=== PATIENT | female | born 1945 | race Caucasian/White ===

== ENCOUNTER → 2020-10-16 11:13 | Outpatient (BNVA) | payer MEDICARE, OTHER, SELFPAY | PROVIDERS: Visit Provider Registered Nurse Neonatal Intensive Care | DX: Z20.822 Contact with and (suspected) exposure to COVID-19 (principal) | CPT/HCPCS: 87635 ==

== ENCOUNTER → 2020-11-10 13:23 | Outpatient (BNVA) | payer MEDICARE, OTHER, SELFPAY | PROVIDERS: Visit Provider Family Medicine | DX: G25.81 Restless legs syndrome (principal); R60.9 Edema, unspecified; K21.9 Gastro-esophageal reflux disease without esophagitis; Z79.899 Other long term (current) drug therapy | CPT/HCPCS: 80053; 80061; 84443; 85025 ==

== ENCOUNTER → 2020-12-23 16:34 | Outpatient (BNVA) | payer MEDICARE, OTHER, SELFPAY | PROVIDERS: Visit Provider Family Medicine | DX: N20.0 Calculus of kidney (principal) | CPT/HCPCS: 81000 ==

== ENCOUNTER 2020-12-27 07:54 | Outpatient (CLI) | payer MEDICARE, OTHER, SELFPAY ==
--- NOTE | 2020-12-27 08:23 | XR_ITS ---
WS: [id number] ABDOMEN KUB CLINICAL INFORMATION: Renal/ureteral calculi. COMPARISON: None. FINDINGS: Several pelvic phleboliths. Possible calculus or phlebolith in the left pelvis along the co urse of the left ureter measuring 4 mm. This could be further evaluated with CT abdomen and pelvis re nal stone protocol. No calculi visualized over the renal fossa although partially obscured by bowel g as. Osteopenia. Mild lumbar curve convex left. Pedicle screw fixation L4-5 with interbody fusion graft. M oderate to advanced degenerative arthritis both hips. Mild degenerative arthritis sacroiliac joints. XR/XR KUB [id number] Impression: Possible calculus or phlebolith in the left pelvis along the course of the left ureter measuring 4 mm. This could be further evaluated with CT abdomen and pel vis renal stone protocol.
== END 2020-12-27 07:55 | disposition home or self-care (01) ==
PROVIDERS: PCP Family Medicine; Visit Provider Family Medicine
DX: N20.0 Calculus of kidney (principal)
CPT/HCPCS: 74018

== ENCOUNTER 2020-12-31 09:17 | Outpatient (CLI) | payer MEDICARE, OTHER, SELFPAY ==
--- NOTE | 2020-12-31 09:27 | XR_ITS ---
WS: [id number] KUB, AP view, 12/31/2020 Clinical Data: CALCULUS OF KIDNEY Comparison: KUB, 12/27/2020. Findings: No abnormal intraabdominal masses are seen. There is no dilatated small bowel or evidence of obstruct ion. The small calcification in the left side of the true pelvis remains the same. The patient had a bilat eral posterior lumbar fusion at L4-L5 with pedicle screws and connecting rods. There is an artificial disc at L4-L5. There is osteoarthritis of both hips and the upper lumbar vertebral bodies. There is fecal material throughout the colon. XR/XR KUB [id number] Impression: No change in possible distal left ureteral calculus.
== END 2020-12-31 09:18 | disposition home or self-care (01) ==
LOC: RAD 09:22
PROVIDERS: PCP Family Medicine; Visit Provider Urology
DX: N20.0 Calculus of kidney (principal)
CPT/HCPCS: 74018; 80048; 81003

== ENCOUNTER 2021-01-03 08:31 | Outpatient (CLI) | payer MEDICARE, OTHER, SELFPAY ==
--- NOTE | 2021-01-03 09:00 | CT_ITS ---
WS: [id number] CT ABDOMEN PELVIS TECHNIQUE: Noncontrast CT of the abdomen and pelvis with coronal and sagittal reformatted images. CLINICAL INFORMATION: CALCULUS OF LEFT KIDNEY COMPARISON: KUB December 2020 DLP: 1335.[address] scans at [facility] use at least one of these dose optimization techniques: automated e xposure control; mA and/or kV adjustment per patient size (includes targeted exams where dose is matc hed to clinical indication); or iterative reconstruction. FINDINGS: Prior postoperative changes hysterectomy. Prior right nephrectomy. Sludge within the gallbladder. Small esophageal hiatal hernia. Mild hepatomegaly. Noncontrast spleen appears normal. Lung bases are well aerated. Subsegmental atelectasis in the lung bases. Fatty atrophy of the pancreas. Adrenal glands are normal. Small left renal cyst. No hydronephrosis in the left kidney. Normal caliber abdominal aorta. Aortic calcification. No obstructing renal or urete ral calculi. Bladder is decompressed. Diffuse bladder wall thickening. Pelvic phleboliths. 2.5 cm lef t renal cyst. Sigmoid diverticuli. No evidence of acute diverticulitis. No evidence of high-grade small or large joy wel obstruction. No abdominal or pelvic lymphadenopathy. No inguinal lymphadenopathy. Slight anterolisthesis L4 on L5. Pedicle screw fixation L4-5. CT/CT kidney stone [id number] IMPRESSION: 1. Prior hysterectomy and right nephrectomy. 2. No hydronephrosis in the left kidney. No obstructing left renal or ureteral calculi. No hydronephrosis. 3. Bladder is decompressed with diffuse bladder wall thickening.Correlation fo r cystitis or chronic cystitis. 4. Small esophageal hiatal hernia. 5. Sludge within the gallbladder. This can be followed up with ultrasound. 6. Sigmoid diverticulosis.
== END 2021-01-03 08:32 | disposition home or self-care (01) ==
LOC: RAD 08:33
PROVIDERS: PCP Family Medicine; Visit Provider Urology
DX: N20.0 Calculus of kidney (principal); Z90.710 Acquired absence of both cervix and uterus; Z90.5 Acquired absence of kidney; K44.9 Diaphragmatic hernia without obstruction or gangrene; K57.30 Diverticulosis of large intestine without perforation or abscess without bleeding
CPT/HCPCS: 74176; 81003

== ENCOUNTER → 2021-01-12 10:14 | Outpatient (BNVA) | payer MEDICARE, OTHER, SELFPAY | PROVIDERS: PCP Family Medicine; Visit Provider Nurse Practitioner Family | DX: R10.9 Unspecified abdominal pain (principal); S61.411A Laceration without foreign body of right hand, initial encounter; X58.XXXA Exposure to other specified factors, initial encounter | CPT/HCPCS: 80053 ==

== ENCOUNTER → 2021-01-27 13:17 | Outpatient (BNVA) | payer MEDICARE, OTHER, SELFPAY | PROVIDERS: PCP Family Medicine; Referring Provider Nurse Practitioner Family; Visit Provider Anesthesiology Pain Medicine | DX: M47.816 Spondylosis without myelopathy or radiculopathy, lumbar region (principal); M48.062 Spinal stenosis, lumbar region with neurogenic claudication; M43.26 Fusion of spine, lumbar region; M51.16 Intervertebral disc disorders with radiculopathy, lumbar region | CPT/HCPCS: 99204 ==

== ENCOUNTER 2021-02-14 07:29 | Outpatient (CLI) | payer MEDICARE, OTHER, SELFPAY ==
--- NOTE | 2021-02-14 08:00 | MR_ITS ---
WS: [id number] MRI LUMBAR SPINE NONCONTRAST TECHNIQUE: Sagittal T1, T2 and STIR imaging. Axial T1 and T2 imaging. CLINICAL INFORMATION: M48.062 - Spinal stenosis, lumbar region with neurogenic ... COMPARISON: None. FINDINGS: Mild lumbar curve. No acute compression. No high-grade central canal stenosis. Pedicle screw fixation L4-5 with interbody fusion graft. L1-L2: Mild disc osteophyte ridging. Slight effacement of ventral thecal sac. Mild facet arthropathy. Mild right and no significant left foraminal narrowing. L2-L3: Mild disc bulging with moderate facet arthropathy and ligamentum flavum hypertrophy. Moderate central canal stenosis. Mild right foraminal narrowing. L3-L4: Slight anterolisthesis L3 on L4. Mild disc bulging with slight narrowing of the subarticular r ecess bilaterally. Moderate facet arthropathy. Mild right foraminal narrowing. L4-L5: Postoperative changes pedicle screw fixation with interbody fusion graft. Spinal canal and for amen are patent. L5-S1: Mild disc bulging slight effacement of ventral thecal sac. Advanced arthropathy. Spinal canal and foramen are patent. Visualized pelvic bony structures: Normal. Paravertebral soft tissues: Normal. MR/MR lumbar spine wo con* [id number] IMPRESSION: 1. Mild lumbar curve. No acute compression. 2. Pedicle screw fixation L4-5 with interbody fusion grafts. Laminectomy defec ts. 3. Mild central canal stenosis L1-2 and moderate central canal stenosis L2-3 d ue to disc bulging with facet arthropathy and ligamentum flavum flavum hypertro phy. 4. Mild narrowing of the L3-4 subarticular recess bilaterally. Moderate facet arthropathy at this level. 5. Advanced facet arthropathy L5-S1. 6. Mild right L1-2, right L2-3 and right L3-4 foraminal narrowing.
== END 2021-02-14 07:30 | disposition home or self-care (01) ==
LOC: RADSHAW 07:34
PROVIDERS: PCP Family Medicine; Visit Provider Anesthesiology Pain Medicine
DX: M48.062 Spinal stenosis, lumbar region with neurogenic claudication (principal); M47.817 Spondylosis without myelopathy or radiculopathy, lumbosacral region; M48.061 Spinal stenosis, lumbar region without neurogenic claudication
CPT/HCPCS: 72148

== ENCOUNTER → 2021-02-23 08:53 | Outpatient (BNVA) | payer MEDICARE, OTHER, SELFPAY | PROVIDERS: PCP Family Medicine; Visit Provider Anesthesiology Pain Medicine | DX: M43.26 Fusion of spine, lumbar region (principal); M47.816 Spondylosis without myelopathy or radiculopathy, lumbar region; M51.16 Intervertebral disc disorders with radiculopathy, lumbar region; M25.511 Pain in right shoulder; M25.512 Pain in left shoulder | CPT/HCPCS: 99214 ==

== ENCOUNTER → 2021-03-01 13:44 | Outpatient (BNVA) | payer MEDICARE, OTHER, SELFPAY | PROVIDERS: PCP Family Medicine; Visit Provider Specialist | DX: R20.0 Anesthesia of skin (principal); R20.2 Paresthesia of skin | CPT/HCPCS: 99203 ==

== ENCOUNTER → 2021-03-15 14:01 | Outpatient (BNVA) | payer MEDICARE, OTHER, SELFPAY | PROVIDERS: PCP Family Medicine; Visit Provider Anesthesiology Pain Medicine | DX: M47.816 Spondylosis without myelopathy or radiculopathy, lumbar region (principal) | CPT/HCPCS: 64493; 64494; 64495; J3490 ==

== ENCOUNTER → 2021-03-29 10:11 | Outpatient (BNVA) | payer MEDICARE, OTHER, SELFPAY | PROVIDERS: PCP Family Medicine; Visit Provider Anesthesiology Pain Medicine | DX: M43.26 Fusion of spine, lumbar region (principal); M47.816 Spondylosis without myelopathy or radiculopathy, lumbar region; M51.16 Intervertebral disc disorders with radiculopathy, lumbar region | CPT/HCPCS: 99214 ==

== ENCOUNTER → 2021-04-05 09:15 | Outpatient (BNVA) | payer MEDICARE, OTHER, SELFPAY | PROVIDERS: PCP Family Medicine; Referring Provider Specialist; Visit Provider Specialist | DX: G56.03 Carpal tunnel syndrome, bilateral upper limbs (principal) | CPT/HCPCS: 95910 ==

== ENCOUNTER → 2021-04-11 12:31 | Outpatient (BNVA) | payer MEDICARE, OTHER, SELFPAY | PROVIDERS: PCP Family Medicine; Visit Provider Anesthesiology Pain Medicine | DX: M47.816 Spondylosis without myelopathy or radiculopathy, lumbar region (principal) | CPT/HCPCS: 64635; 64636; J1030 ==

== ENCOUNTER → 2021-04-26 12:27 | Outpatient (BNVA) | payer MEDICARE, OTHER, SELFPAY | PROVIDERS: PCP Family Medicine; Visit Provider Anesthesiology Pain Medicine | DX: M47.816 Spondylosis without myelopathy or radiculopathy, lumbar region (principal) | CPT/HCPCS: 64635; 64636; J1030 ==

== ENCOUNTER → 2021-05-11 09:56 | Outpatient (BNVA) | payer MEDICARE, OTHER, SELFPAY | PROVIDERS: PCP Family Medicine; Visit Provider Anesthesiology Pain Medicine | DX: M47.816 Spondylosis without myelopathy or radiculopathy, lumbar region (principal); M51.16 Intervertebral disc disorders with radiculopathy, lumbar region; M43.26 Fusion of spine, lumbar region | CPT/HCPCS: 99212 ==

== ENCOUNTER → 2021-05-16 09:14 | Outpatient (BNVA) | payer MEDICARE, OTHER, SELFPAY | PROVIDERS: PCP Family Medicine; Referring Provider Specialist; Visit Provider Specialist | DX: G56.03 Carpal tunnel syndrome, bilateral upper limbs (principal) | CPT/HCPCS: 73110 ==

== ENCOUNTER 2021-06-03 06:39 | Day surgery (SDC) | payer MEDICARE, OTHER, SELFPAY ==
[2021-06-02 12:44] VITALS: BMI 29.9
[2021-06-03] VITALS (8 sets, daily range): BP systolic 169–215; BP diastolic 80–104; PULSE 81–96; RESP 12–16; TEMP 36.3–36.6; O2SAT 95–99
--- NOTE | 2021-06-03 07:00 | W.PM.OPSUD ---
Surgery/Procedure H&P Update DATE OF PROCEDURE: June 03, 2021 DATE H&P PERFORMED: 05/16/21 H&P UPDATE INFORMATION: I have reviewed H&P completed within last 30 days, I have examined patient prior to procedure and Changes to prior documentation as noted here CHANGES TO PREVIOUS DOCUMENTATION: Trigger thumb continues to increase in symptoms. Patient wishes to have this addressed surgically today as well. This will be added to the procedure today. Risks and complications discussed with patient and she understands. PREOP DIAGNOSIS: Left carpal tunnel syndrome, Left trigger thumb PLANNED PROCEDURE: Operation Date: 06/03/21 08:15 Proposed Procedures p Carpal Tunnel Release 89294/g56.00(Left) - Camelia Tobin MD Related Problem List Diagnoses (1) Carpal tunnel syndrome, left: (2) Trigger thumb of left hand:
[2021-06-03 07:36] LABS: Basophils # 0.1 10^3/uL (0.0-0.1); Basophils % 0.9 %; Eosinophils # 0.3 10^3/uL (0.0-0.8); Eosinophils % 3.7 %; Hematocrit 43.4 % (37.0-47.0); Hemoglobin 13.7 g/dL (11.5-15.3); Lymphocytes # 1.2 10^3/uL (0.8-4.8); Lymphocytes % 16.3 %; Mean Corpuscular HGB Conc 31.6 g/dL (30.0-36.0); Mean Corpuscular Hemoglobin 30.2 pg (28.0-34.0); Mean Corpuscular Volume 95.8 fl (81-99); Mean Platelet Volume 10.4 fL (7.4-10.4); Monocytes # 0.8 10^3/uL (0.2-0.9); Monocytes % 10.2 %; Neutrophils # 5.02 10^3/uL (1.8-7.7); Neutrophils % 68.1 %; Nucleated Red Blood Cells % 0 %; Platelet Count 267 10^3/cmm (130-400); Red Blood Count 4.53 10^6/uL (4.1-5.3); Red Cell Distribution Width 12.5 % (12.1-15.1); White Blood Count 7.4 10^3/uL (4.0-10.0)
[2021-06-03] MEDS: sodium chloride 0.9% 1,000 ML 30 ML IV (07:37)
[2021-06-03 07:52] LABS: Alanine Aminotransferase 22 U/L (0-33); Albumin Level 4.4 g/dL (3.5-5.2); Alkaline Phosphatase 98 IU/L (35-105); Anion Gap 15.1 (5-19); Aspartate Amino Transferase 24 U/L (0-32); Blood Urea Nitrogen 10 mg/dL (8-23); Calcium 9.5 mg/dL (8.5-10.5); Carbon Dioxide 25 mmol/L (22-29); Chloride 104 mmol/L (98-107); Globulin 3.4 g/dL (1.3-4.6); Glucose 103 mg/dL (65-115); Osmolality Calculated 289 mOsm/kg (285-295); Potassium 4.1 mmol/L (3.5-5.1); Sodium 140 mmol/L (136-145); Total Bilirubin 0.6 mg/dL (0.15-1.2); Total Protein 7.8 g/dL (6.6-8.7)
--- NOTE | 2021-06-03 07:55 | ANES.PREANE2 ---
Pre-Anesthetic Assessment Height/Weight: Height 1.65 m Weight 81.647 kg Temp Pulse Resp BP Pulse Ox 97.7 F 81 16 215/100 97 06/03/21 07:15 06/03/21 07:15 06/03/21 07:15 06/03/21 07:15 06/03/21 07:15 Preop Diagnosis: Left carpal tunnel syndrome, Left trigger thumb Operation Date: 06/03/21 08:15 Proposed Procedures p Carpal Tunnel Release 35003/g56.00(Left) - Camelia Tobin MD Familial anesthetic complications: None Was Beta Roger taken within 24 hours: N/A Was Clonidine taken within 24 hours: N/A Last intake: Intake Last Liquid Date 06/02/21 Last Liquid Time 19:30 Last Solid Date 06/02/21 Last Solid Time 17:00 Social No alcohol and No tobacco Exam alert, oriented x 3, clear to auscultation bilaterally and regular rate & rhythm Airway Submandibular: within normal limits Cervical ROM: within normal limits Mallampati: Class II Dentition: full GI Gastroesophageal Reflux Disease Musc/skel Lower Back Pain and Osteoarthritis/DJD Anesthetic Plan ASA status: 2 Anesthesia: MAC and Regional (specify below) (Esha perez) Medications/Allergies Home Medications Medication Instructions Recorded Confirmed Last Taken Type omeprazole 20 mg capsule,delayed 20 mg PO DAILY #30 cap 12/23/20 06/03/21 06/02/21 Rx release baclofen 10 mg tablet 10 mg PO BID PRN #60 tab 02/23/21 06/02/21 Unknown Rx diazepam 5 mg tablet 5 mg PO BID #60 tab 05/17/21 06/03/21 06/02/21 Rx aspirin 81 mg tablet,delayed 81 mg PO DAILY 06/02/21 06/03/21 06/01/21 History release pramipexole 1 mg tablet 1 mg PO BEDTIME 06/03/21 06/03/21 06/02/21 History Allergies Allergy/AdvReac Type Severity Reaction Status Date / Time adhesive tape Allergy irritating Verified 06/03/21 07:14 skin amoxicillin [From Augmentin] Allergy GI upset Verified 06/03/21 07:14 clavulanic acid Allergy GI upset Verified 06/03/21 07:14 [From Augmentin] codeine Allergy Nausea Verified 06/03/21 07:14 Sulfa (Sulfonamide Allergy Rash Verified 06/03/21 07:14 Antibiotics) Current Medications Generic Name Dose Route Start Last Admin Trade Name Toddq PRN Reason Stop Dose Admin Sodium Chloride 1,000 mls @ 30 mls/hr 06/03/21 07:00 06/03/21 07:37 Sodium Chloride 0.9% IV 06/04/21 06:59 30 mls/hr .Q24H NADYA Administration PFSH Anesthesia Medical History Kidney stone Surgical History History of kidney removal Hx of hysterectomy Previous back surgery Family History Father , AT AGE 66 Heart attack Mother , AT AGE 93 Stroke Social History Smoking and tobacco status: never smoked Alcohol intake: never Marital status: Current occupational status: retired History of recent travel: Yes Details: [place] LAST WEEKEND Out of state: Yes Data Anesthesia : 06/03/21 07:21 06/03/21 07:21 Short CBC 06/03/21 Range/Units 07:21 WBC 7.4 (4.0-10.0) 10^3/uL Hgb 13.7 (11.5-15.3) g/dL Hct 43.4 (37.0-47.0) % MCV 95.8 (81-99) fl Plt Count 267 (130-400) 10^3/cmm Neut % (Auto) 68.1 % Neut # (Auto) 5.02 (1.8-7.7) 10^3/uL BMP 06/03/21 07:21 Sodium 140 Potassium 4.1 Chloride 104 Carbon Dioxide 25 BUN 10 Creatinine 0.8 Glucose 103 Calcium 9.5 Liver Function 06/03/21 Range/Units 07:21 Total Bilirubin 0.6 (0.15-1.2) mg/dL AST 24 (0-32) U/L ALT 22 (0-33) U/L Alkaline Phosphatase 98 (35-105) IU/L Albumin 4.4 (3.5-5.2) g/dL Cardiac Studies: No Data to Display
--- NOTE | 2021-06-03 09:57 | PM.OP ---
Operative Report Date of procedure: June 03, 2021 Pre-op diagnosis: Left carpal tunnel syndrome, Left trigger thumb Post-op diagnosis: Left carpal tunnel syndrome, Left trigger thumb Procedure done: Left carpal tunnel release and left trigger thumb release Pathology: none sent Surgeon: Camelia Tobin Director Of Individual Giving: None Anesthesia: MAC (With Arcade block, ASA 2) Estimated blood loss (mL): 1 Tourniquet time (min): 54 (At 250 mmHg) IV fluids (mL): 800 Urine output (mL): 0 (No Mark) Complications: None Findings: Significant thickening of the A1 ingris of the thumb. Compression across the carpal canal. Condition: stable Disposition: PACU (Then return to same-day surgery for discharge to home) Brief History: This is a 75 year old female patient who presented with symptoms consistent with bilateral carpal tunnel. Patient noted significant pain from the carpal tunnel syndrome. Additionally, she complained of triggering of her left thumb. At the time of initial evaluation, she was not sure that it was symptomatic enough, but when she presented today, she noted that it had increased significantly in symptoms and was worsening. She wished to proceed with trigger thumb release as well. Patient states that it can wake her up at night.? Patient states that pain on left side can start in hand and jump to shoulder. Procedure: The patient was brought to the operating theater. The patient had a Arcade block with MAC, ASA 2. The tourniquet was elevated to 250 mmHg for a total tourniquet time of 54 minutes. The patient was also given Ancef 2 g preoperatively. The arm was then prepped and draped with DuraPrep in usual fashion with the arm draped free. A surgical pause was performed. At the time, the surgical pause, we confirmed the site and side of surgery. We also confirmed the patient's identity, appropriate and timely administration of preoperative antibiotics and preoperative surgical markings. An incision was then made along the thenar crease. The incision crossed the wrist joint in a curvilinear fashion. Dissection continued through skin and soft tissues using a scalpel. The palmaris longus was identified along with the transverse carpal ligament. Each of these was released carefully to avoid injury to the median nerve. We were able to dissect gently into the carpal canal which was noted to be quite tight with significant compression across the median nerve. The canal was subsequently palpated to assure there was no bony encroachment upon the canal. The canal was then palpated distally and proximally to assure that my small finger was passed easily without impingement. Finding this to be so, attention was directed to closure. The wound was irrigated with ropivacaine plain. It was then closed with 3-0 nylon in an interrupted mattress fashion. An incision was made along the metacarpal phalangeal crease of the thumb. Dissection continued through the skin to the subcutaneous tissues using a scalpel. Blunt dissection was then utilized to spread soft tissues and allow access to the A1 ingris. It was then incised longitudinally and sharply using a knife. This was accomplished without difficulty and atraumatically. Once the A1 ingris was released, tendon wasbrought up out of the wound and evaluated. There were no gross masses on the tendon. Tendon was returned to normal position. We then irrigated the wound and subsequently closed it with 3-0 nylon with an interrupted mattress type suture. Following closure of the wound, both incisions were injected with ropivacaine into the subcutaneous tissues as a local anesthetic. Sterile dressing was then placed consisting of Dermabond, OpSite, fluffed fluffs, sterile soft roll, and an Louis wrap. The tourniquet was released after 54 minutes. The patient was returned to recovery in satisfactory condition. She will be discharged home to follow-up with me in the office. There were no complications and no specimens. Related Problem List Diagnoses (1) Carpal tunnel syndrome, left: (2) Trigger thumb of left hand:
--- NOTE | 2021-06-03 13:08 | ANE.PACU2 ---
Inpatient post-anesthesia follow up: Airway intact: Yes Vital signs: Temperature 98 F Pulse Rate 90 Respiratory Rate 16 Blood Pressure 170/90 Pulse Oximetry 97 Oxygen Delivery Me thod Room Air Oxygen Flow Rate Fraction of Inspir ed Oxygen Hydration adequate: Yes Nausea and vomiting: No Pain level: 2 Mental status: Baseline
== END 2021-06-03 10:45 | disposition home or self-care (01) ==
PROVIDERS: PCP Family Medicine; Visit Provider Specialist
PROC: (CPT 64721; principal; 2021-06-03 08:15)
PROC: (CPT 26055; 2021-06-03 08:15)
DX: G56.02 Carpal tunnel syndrome, left upper limb (principal); M65.312 Trigger thumb, left thumb; K21.9 Gastro-esophageal reflux disease without esophagitis; M19.90 Unspecified osteoarthritis, unspecified site
CPT/HCPCS: 26055; 64721; 36415; 80053; 85025; J0690; J2704; J3010; J3490; J7030

== ENCOUNTER → 2021-08-10 09:05 | Outpatient (BNVA) | payer MEDICARE, OTHER, SELFPAY | PROVIDERS: PCP Family Medicine; Visit Provider Surgery | DX: Z86.010 Personal history of colon polyps (principal) | CPT/HCPCS: 99203 ==

== ENCOUNTER 2021-08-11 07:35 | Day surgery (SDC) | payer MEDICARE, OTHER, SELFPAY ==
[2021-08-10 11:28] VITALS: BMI 30.6
[2021-08-11 08:00] VITALS: BP 157/76; PULSE 95; RESP 18; TEMP 36.5; O2SAT 97
[2021-08-11] MEDS: sodium chloride 0.9% 1,000 ML 30 ML IV (08:04)
--- NOTE | 2021-08-11 09:08 | P.ANESASSM_ITS ---
Pre-Anesthetic Assessment Height/Weight: Height 1.65 m Weight 83.461 kg Temp Pulse Resp BP Pulse Ox 97.7 F 95 18 157/76 97 08/11/21 08:00 08/11/21 08:00 08/11/21 08:00 08/11/21 08:00 08/11/21 08:00 Preop Diagnosis: History of colon polyps Operation Date: 08/11/21 09:15 Proposed Procedures p Colonoscopy 77388,Z86.010(Not Applicable) - Antelmo Byrne MD Familial anesthetic complications: None Was Beta Roger taken within 24 hours: N/A Was Clonidine taken within 24 hours: N/A Last intake: Intake Last Liquid Date 08/10/21 Last Liquid Time 20:00 Last Solid Date 08/10/21 Last Solid Time 06:30 Social No alcohol and No tobacco Exam alert, oriented x 3, clear to auscultation bilaterally and regular rate & rhythm Airway Submandibular: within normal limits Cervical ROM: within normal limits Mallampati: Class I Dentition: full History/ROS No significant complaints Pulmonary None reported CV/HEM Hypertension Hx of kidney removal Hepatic None reported GI Gastroesophageal Reflux Disease Diverticulosis Metabolic None reported Musc/skel Lower Back Pain and Osteoarthritis/DJD Anesthetic Plan ASA status: 2 Anesthesia: Anesthesia Evaluation and General Other: I discussed with the patient risks, goals, and benefits of MAC and general anesthesia. We discussed spectrum of MAC anesthesia including conversion to general as well as possibility of recall of intraoperative stimuli including discomfort/pain. Patient agrees to proceed with MAC. Risk of > 500 ml blood loss (7ml/kg in children): No Medications/Allergies Home Medications Medication Instructions Recorded Confirmed Last Taken Type omeprazole 20 mg capsule,delayed 20 mg PO DAILY #30 cap 12/23/20 08/10/21 08/10/21 Rx release aspirin 81 mg tablet,delayed 81 mg PO DAILY 06/02/21 08/10/21 08/09/21 History release ropinirole 1 mg tablet 1 mg PO DAILY #30 tab 07/29/21 08/10/21 08/09/21 Rx valsartan 80 mg tablet 80 mg PO DAILY #30 tab 07/29/21 08/10/21 08/10/21 Rx diazepam 5 mg tablet 5 mg PO BID PRN 08/10/21 08/11/21 08/10/21 History Allergies Allergy/AdvReac Type Severity Reaction Status Date / Time adhesive tape Allergy irritating Verified 08/11/21 08:37 skin amoxicillin [From Augmentin] Allergy GI upset Verified 08/11/21 08:37 clavulanic acid Allergy GI upset Verified 08/11/21 08:37 [From Augmentin] codeine Allergy Nausea Verified 08/11/21 08:37 Sulfa (Sulfonamide Allergy Rash Verified 08/11/21 08:37 Antibiotics) Current Medications Generic Name Dose Route Start Last Admin Trade Name Freq PRN Reason Stop Dose Admin Sodium Chloride 1,000 mls @ 30 mls/hr 08/11/21 07:45 08/11/21 08:04 Sodium Chloride 0.9% IV 30 mls/hr .Q24H NADYA Administration PFSH Anesthesia Medical History Kidney stone Surgical History History of kidney removal Hx of hysterectomy Previous back surgery Family History Father , AT AGE 66 Heart attack Mother , AT AGE 93 Stroke Social History Smoking and tobacco status: never smoked Alcohol intake: never Marital status: Current occupational status: retired History of recent travel: Yes Details: [place] LAST WEEKEND Out of state: Yes Data Anesthesia Cardiac Studies: No Data to Display
--- NOTE | 2021-08-11 09:27 | W.PM.OPSUD ---
Surgery/Procedure H&P Update DATE OF PROCEDURE: August 11, 2021 DATE H&P PERFORMED: 08/10/21 H&P UPDATE INFORMATION: I have reviewed H&P completed within last 30 days, I have examined patient prior to procedure and No changes to prior documentation PREOP DIAGNOSIS: History of colon polyps PRIMARY INDICATION FOR PROCEDURE: The same PLANNED PROCEDURE: Operation Date: 08/11/21 09:15 Proposed Procedures p Colonoscopy 87921,Z86.010(Not Applicable) - Antelmo Byrne MD
[2021-08-11 09:28] VITALS: BP 119/66; PULSE 83; RESP 16; TEMP 36.4; O2SAT 97
[2021-08-11 09:33] VITALS: BP 152/79; PULSE 81; RESP 18; O2SAT 95
[2021-08-11 09:40] VITALS: BP 136/72; PULSE 72; RESP 18; O2SAT 95
--- NOTE | 2021-08-11 10:17 | ANE.PACU2 ---
Inpatient post-anesthesia follow up: Airway intact: Yes Vital signs: Temperature 97.5 F Pulse Rate 72 Respiratory Rate 18 Blood Pressure 136/72 Pulse Oximetry 95 Oxygen Delivery Me thod Room Air Oxygen Flow Rate 2 Fraction of Inspir ed Oxygen Hydration adequate: Yes Nausea and vomiting: No Pain level: 1 Mental status: Baseline
== END 2021-08-11 10:00 | disposition home or self-care (01) ==
PROVIDERS: PCP Family Medicine; Visit Provider Surgery
PROC: 0DJD8ZZ Inspection of Lower Intestinal Tract, Via Natural or Artificial Opening Endoscopic (ICD-10-PCS; CPT 45378; principal; 2021-08-11 09:15)
DX: Z12.11 Encounter for screening for malignant neoplasm of colon (principal); Z86.010 Personal history of colon polyps; Z79.82 Long term (current) use of aspirin; K57.30 Diverticulosis of large intestine without perforation or abscess without bleeding; D12.8 Benign neoplasm of rectum; I10 Essential (primary) hypertension
CPT/HCPCS: 45385; 88305; J2704; J7030

== ENCOUNTER → 2021-08-31 15:16 | Outpatient (BNVA) | payer MEDICARE, OTHER, SELFPAY | PROVIDERS: PCP Family Medicine; Visit Provider Surgery | DX: R10.9 Unspecified abdominal pain (principal); R14.0 Abdominal distension (gaseous); K57.31 Diverticulosis of large intestine without perforation or abscess with bleeding; Z86.010 Personal history of colon polyps; Z98.890 Other specified postprocedural states; R19.7 Diarrhea, unspecified | CPT/HCPCS: 99213 ==

== ENCOUNTER 2021-09-29 09:27 | Outpatient (CLI) | payer MEDICARE, OTHER, SELFPAY ==
--- NOTE | 2021-09-29 10:00 | US_ITS ---
WS: [id number] RIGHT UPPER QUADRANT ULTRASOUND HISTORY: Abdominal pain. COMPARISON: None available. Liver: 16.0 cm in length. Mildly coarsened echotexture. Normal size. No mass. Portal Vein: Normal hepatopetal flow with monophasic waveform. Gallbladder: Mobile debris and sludge within the gallbladder. There could be a few small stones which are nonshadowing. No large stones. The wall is top normal size but no pericholecystic fluid. CBD: 0.2 cm Pancreas: Normal size and echogenicity. Right kidney: Prior nephrectomy. Aorta and IVC: Poorly visualized. No ascites. US/US gall bladder 62209 IMPRESSION: 1. Debris within the gallbladder. Sludge and a few small nonshadowing stones m ay be present. No gallbladder wall thickening or pericholecystic fluid. 2. No common bile duct dilatation.
== END 2021-09-29 09:28 | disposition home or self-care (01) ==
PROVIDERS: PCP Family Medicine; Visit Provider Surgery
DX: R10.9 Unspecified abdominal pain (principal); R14.0 Abdominal distension (gaseous)
CPT/HCPCS: 76705

== ENCOUNTER → 2021-10-03 09:00 | Outpatient (BNVA) | payer MEDICARE, OTHER, SELFPAY | PROVIDERS: PCP Family Medicine; Visit Provider Surgery | DX: Z09 Encounter for follow-up examination after completed treatment for conditions other than malignant neoplasm (principal); R10.9 Unspecified abdominal pain; R19.7 Diarrhea, unspecified | CPT/HCPCS: 99213 ==

== ENCOUNTER 2021-10-11 10:33 | Day surgery (SDC) | payer MEDICARE, OTHER, SELFPAY ==
[2021-10-10 13:31] VITALS: BMI 28.3
[2021-10-11] VITALS (11 sets, daily range): BP systolic 117–162; BP diastolic 62–118; PULSE 79–88; RESP 13–23; TEMP 36.3–36.6; O2SAT 94–99
[2021-10-11] MEDS: sodium chloride 0.9% 1,000 ML 30 ML IV (11:06)
--- NOTE | 2021-10-11 11:08 | ANES.PREANE2 ---
Pre-Anesthetic Assessment Height/Weight: Height 1.65 m Weight 77.337 kg Temp Pulse Resp BP Pulse Ox O2 Del Method 97.5 F L 85 16 144/66 99 10/11/21 11:02 10/11/21 11:02 10/11/21 11:02 10/11/21 11:02 10/11/21 11:02 10/11/21 11:02 Preop Diagnosis: Symptomatic cholelithiasis Operation Date: 10/11/21 12:15 Proposed Procedures p Laparoscopic Cholecystectomy 28416,R10.9(Not Applicable) - Antelmo Byrne MD Familial anesthetic complications: none Was Beta Roger taken within 24 hours: N/A Was Clonidine taken within 24 hours: N/A Last intake: Intake Last Liquid Date 10/10/21 Last Liquid Time 17:00 Last Solid Date 10/03/21 Last Solid Time 12:00 Social No alcohol and No tobacco Exam alert, oriented x 3, clear to auscultation bilaterally and regular rate & rhythm Airway Submandibular: within normal limits Cervical ROM: within normal limits Mallampati: Class II Dentition: full Pulmonary None reported CV/HEM Hypertension METS > 4 Nephrolithiasis S/P nephrectomy Hepatic None reported GI Gastroesophageal Reflux Disease Diverticulosis Cholelithiasis Metabolic None reported Musc/skel Lower Back Pain and Osteoarthritis/DJD Neuropsych Neuropathy RLS Anesthetic Plan ASA status: 2 Anesthesia: Anesthesia Evaluation and General Other: We discussed risk and benefits of general anesthesia including PONV, sore throat (sometimes severe), corneal abrasion, positioning and peripheral nerve injuries, life threatening allergic reaction, post operative ICU admission requiring prolonged intubation, aspiration, stroke, heart attack, , and rare incidences of recall. Patient consents to proceed with general anesthesia. Risk of > 500 ml blood loss (7ml/kg in children): No Medications/Allergies Home Medications Medication Instructions Recorded Confirmed Last Taken Type omeprazole 20 mg capsule,delayed 20 mg PO DAILY #30 caps 12/23/20 10/11/21 10/11/21 Rx release aspirin 81 mg tablet,delayed 81 mg PO DAILY 06/02/21 10/10/21 10/09/21 History release clonazepam 1 mg tablet 1 mg PO DAILY Restless legs #30 09/20/21 10/11/21 10/10/21 Rx tabs valsartan 160 mg tablet 160 mg PO DAILY #30 tabs 09/20/21 10/11/21 10/10/21 Rx Allergies Allergy/AdvReac Type Severity Reaction Status Date / Time adhesive tape Allergy irritating Verified 10/04/21 17:04 skin amoxicillin [From Augmentin] Allergy GI upset Verified 10/04/21 17:04 clavulanic acid Allergy GI upset Verified 10/04/21 17:04 [From Augmentin] codeine Allergy Nausea Verified 10/04/21 17:04 Sulfa (Sulfonamide Allergy Rash Verified 10/04/21 17:04 Antibiotics) FOR[facility], [facility] Anesthesia Medical History Diverticulosis large intestine w/o perforation or abscess w/bleeding History of colon polyps Kidney stone Surgical History History of kidney removal Hx of hysterectomy Previous back surgery Family History Father , AT AGE 66 Heart attack Mother , AT AGE 93 Stroke Social History Smoking and tobacco status: never smoked Alcohol intake: never Marital status: Current occupational status: retired History of recent travel: Yes Details: [place] LAST WEEKEND Out of state: Yes Data Anesthesia Cardiac Studies: No Data to Display
--- NOTE | 2021-10-11 11:09 | ECG_ITS ---
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 Measurements Intervals Reading Rate: 78 P: 35 NC: 203 QRS: -47 QRSD: 109 T: 8 QT: 393 QTc: 450 Interpretive Statements SINUS RHYTHM PATTERN CONSISTENT WITH PULMONARY DISEASE LEFT ANTERIOR FASCICULAR BLOCK [QRS AXIS <= -45, QR IN I, RS IN II] No previous ECG available for comparison Electronically Signed On 10-11-2021 17:49:50 CDT by Patrick Basurto M.D. [id number]
[2021-10-11] MEDS: acetaminophen 1,000 MG/100 ML PIGGYBACK 400 MG IV (11:10)
[2021-10-11] MEDS: heparin 5,000 unit/mL INJ 1 mL 2000 UNIT SUBCUT (11:26)
--- NOTE | 2021-10-11 11:29 | W.PM.OPSUD ---
Surgery/Procedure H&P Update DATE OF PROCEDURE: October 11, 2021 DATE H&P PERFORMED: 10/03/21 H&P UPDATE INFORMATION: I have reviewed H&P completed within last 30 days, I have examined patient prior to procedure and Changes to prior documentation as noted here (Patient reports that she lost 6 pounds on liquid protein diet) PREOP DIAGNOSIS: Symptomatic cholelithiasis PRIMARY INDICATION FOR PROCEDURE: The same PLANNED PROCEDURE: Operation Date: 10/11/21 12:15 Proposed Procedures p Laparoscopic Cholecystectomy 87103,R10.9(Not Applicable) - Antelmo Byrne MD
[2021-10-11] MEDS: ciprofloxacin 400 MG/200 ML PREMIX 200 MG IV (11:45)
[2021-10-11] MEDS: lidocaine 2% INJ 20 mL INJECTION (12:08)
--- NOTE | 2021-10-11 12:43 | PM.OP ---
Operative Report Date of procedure: October 11, 2021 Pre-op diagnosis: Preop Diagnosis Symptomatic cholelithiasis Post-op diagnosis: Chronic calculus cholecystitis Procedure done: Laparoscopic cholecystectomy Implants: Surgicel at the gallbladder fossa Specimens removed/disposition: Gallbladder and contents Surgeon: Antelmo Byrne MD Psychologist Research Assistant: Surgical jia Schultz and Kriss Circulating nurse Wanda Anesthesia: General (DEWER Marlene) Estimated blood loss (mL): 25 IV fluids (mL): 1,000 Procedure: Patient was identified in the holding area and taken back to the operative suite, placed in supine position intubated by anesthesia . Time-out was done verifying the patient's name/date of /planned procedure and destination after the procedure, all were in agreement. SCDs confirmed to be functioning, preoperative antibiotics administered per protocol, and beta andrews protocol was confirmed. Patient was appropriately secured to the table, footboard was applied to the OR table, before prep and drape anesthesia was asked to tilt the table back and forth to make sure that the patient is appropriately secured and she was. Prep and drape of the abdomen was done under the usual sterile technique, followed by that supraumbilical skin incision,skin incision was done by a 15 blade knife, and stay sutures were applied to the fascia and Rush trocar technique was used to enter the abdominal without injuring any abdominal viscera, started by low flow gas insufflation followed by a high flow, started with a 10 mm laparoscope and under direct vision there was no evidence of any injuries, the scope then switched to a 30? ,10 millimeter scope and under direct visualization 5 millimeter trocar was inserted in the epigastric region followed by two 5 mm trocars were inserted in the right upper quadrant that was done after injection of local lidocaine 2% at all incision sites. Gallbladder showed chronic cholecystitis and with omental adhesions Patient was then positioned in the head up and tilted to the left. Ratcheted forceps were introduced into the lateral most 5mm port and was applied unto the fundus of the gallbladder cephalad and using Bullet forceps the infundibulum of the gallbladder was retracted laterally. Using [place] forceps then L-hook cautery to dissect the peritoneum overlying the Calot's triangle which was then opened medially and laterally until the cystic duct and the cystic artery were skeletonized. Dissection was carried along the body of the gallbladder and after ensuring critical view of safety was identfied. Omental adhesions were taken down under direct visualization appropriate hemostasis was achieved. Cystic duct and cystic artery where seen connected to the gallbladder. Clips were applied on the cystic duct towards the common bile duct 1 towards the gallbladder then divided is in sharp scissors, 2 clips were then applied onto the cystic artery and 1 towards the gallbladder and divided by sharp scissors. Additional traversing vessel was clipped and divided Dissection was then carried along of the gallbladder from the gallbladder fossa using cautery as well as sharp dissection with heat energy. The gallbladder then was dissected out from the gallbladder fossa totally , cholecystectomy was then achieved and was placed in an Endo Catch bag and then retrieved from the Rush trocar site under direct visualization using a 5 mm 30? scope through the epigastric trocar, specimen was then passed to the circulating nurse to go for permanent pathology,irrigation and hemostasis was done to the gallbladder fossa after hemostasis was secured and pieces of Surgicel were applied at the gallbladder fossa, final survey laparoscopy was done that showed no injuries. Suction irrigation was obtained The supraumbilical fascial defect was then closed using interrupted number one PDS sutures using a fascial closure device ;Juan Miguel Hernandez under direct visualization following that Gas was allowed to deflate,Trocars were then taken out under direct vision there was no evidence of bleeding. Specimen was passed to the circulating nurse for permanent pathology. No drains were placed and the supraumbilical incision as well as all trocar sites were closed by 3/0 Vicryl followed by 4-0 Monocryl to approximate the skin edges of the incisions , dressing was applied in the form of surical glue and the patient patient got extubated and was taken to recovery area in a stable condition. Count of sponges,needles and instruments were completed at the end of the procedure I was present for the whole entire procedure.
[2021-10-11] MEDS: HYDROcodone-acetaminophen 5-325 mg Tablet 1 TAB PO (13:41)
--- NOTE | 2021-10-11 14:33 | ANE.PACU2 ---
Inpatient post-anesthesia follow up: Airway intact: Yes Vital signs: Temperature 98 F Pulse Rate 85 Respiratory Rate 16 Blood Pressure 147/68 Pulse Oximetry 97 Oxygen Delivery Me thod Room Air Oxygen Flow Rate 2 Fraction of Inspir ed Oxygen Hydration adequate: Yes Nausea and vomiting: No Pain level: 4 Mental status: Baseline
== END 2021-10-11 15:05 | disposition home or self-care (01) ==
PROVIDERS: PCP Family Medicine; Visit Provider Surgery
PROC: 0FT44ZZ Resection of Gallbladder, Percutaneous Endoscopic Approach (ICD-10-PCS; CPT 47562; principal; 2021-10-11 12:05)
DX: K80.10 Calculus of gallbladder with chronic cholecystitis without obstruction (principal); K21.9 Gastro-esophageal reflux disease without esophagitis
CPT/HCPCS: 47562; 88304; 93005; J0461; J0744; J1100; J1644; J2001; J2370; J2405; J2704; J2710; J3010; J3490; J7030

== ENCOUNTER → 2021-10-19 15:34 | Outpatient (BNVA) | payer MEDICARE, OTHER, SELFPAY | PROVIDERS: PCP Family Medicine; Visit Provider Surgery | DX: Z90.49 Acquired absence of other specified parts of digestive tract (principal); Z98.890 Other specified postprocedural states | CPT/HCPCS: 99024 ==

== ENCOUNTER → 2021-11-16 12:36 | Outpatient (BNVA) | payer MEDICARE, OTHER, SELFPAY | PROVIDERS: PCP Family Medicine; Visit Provider Surgery | DX: Z98.890 Other specified postprocedural states (principal); Z90.49 Acquired absence of other specified parts of digestive tract | CPT/HCPCS: 99024 ==

== ENCOUNTER 2021-12-16 10:17 | Outpatient (CLI) | payer MEDICARE, OTHER, SELFPAY ==
--- NOTE | 2021-12-16 10:24 | MM_ITS ---
WS: [id number] BILATERAL SCREENING DIGITAL BREAST MAMMOGRAPHY WITH MARIAM DISPLACEMENT VIEWS. CAD PERFORMED. HISTORY: screening mammogram COMPARISON: 08/03/2020, 07/15/2019 Bilateral craniocaudal and mediolateral oblique views are performed with tomosynthesis and SM. Mariam displacement views in CC and MLO projection also performed. Breasts composition: There are scattered areas of fibroglandular density. Benign calcification in th e central LEFT breast. Retropectoral implants with partial encapsulation by calcifications. Vascular calcifications. MM/[place] [id number] IMPRESSION: BI-RADS: 2-Benign FOLLOW-UP: 1 Year Follow-up
== END 2021-12-16 10:18 | disposition home or self-care (01) ==
LOC: RAD 10:18
PROVIDERS: PCP Family Medicine; Visit Provider Family Medicine
DX: Z12.31 Encounter for screening mammogram for malignant neoplasm of breast (principal)
CPT/HCPCS: 77063; 77067

== ENCOUNTER 2022-03-22 21:11 | Inpatient (IN) | payer MEDICARE, OTHER, SELFPAY ==
[2022-03-22] VITALS (11 sets, daily range): BP systolic 112–164; BP diastolic 70–97; PULSE 58–94; RESP 12–22; TEMP 36.5; O2SAT 91–100; BMI 26.6
--- NOTE | 2022-03-22 21:17 | XRR_ITS ---
PROCEDURE INFORMATION: Exam: XR Chest Exam date and time: 03/22/2022 9:24 PM Age: 76 years old Clinical indication: Pain; Chest pressure; Additional info: Cp started tonight about 7 TECHNIQUE: Imaging protocol: Radiologic exam of the chest. Views: 1 view. COMPARISON: CT kidney stone [id number] 01/03/2021 8:41 AM FINDINGS: Lungs: Bibasilar scarring. No consolidation. Pleural spaces: No pleural effusion. No pneumothorax. Heart/Mediastinum: No cardiomegaly. Bones/joints: Visualized osseous structures are intact. XR/XR chest 1V portable [id number] IMPRESSION: No acute findings.
--- NOTE | 2022-03-22 21:18 | ECG_ITS ---
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 Measurements Intervals [place] Rate: 58 P: 41 [place]: 193 QRS: -34 QRSD: 110 T: 72 QT: 388 QTc: 382 Interpretive Statements SINUS BRADYCARDIA LEFT AXIS DEVIATION [QRS AXIS < -30] PATTERN CONSISTENT WITH PULMONARY DISEASE NONSPECIFIC T-WAVE ABNORMALITY Compared to ECG 10/11/2021 11:21:49 Left-axis deviation now present T-wave abnormality now present Sinus rhythm no longer present Left anterior fascicular block no longer present Electronically Signed On 03-23-2022 8:09:15 DOVETAILER by Patrick Basurto M.D. [id number]
[2022-03-22] MEDS: ondansetron 2 mg/ML SDV 2 mL 4 MG IVP ×3 (21:22→23:56)
[2022-03-22] MEDS: morphine 4 mg/mL SDV 1 mL IVP (21:22)
[2022-03-22] MEDS: sodium chloride 0.9% 1,000 ML 999 ML IV (21:23)
[2022-03-22] MEDS: aspirin 81 mg Chew Tablet 324 MG PO (21:23)
--- NOTE | 2022-03-22 21:24 | ED_ITS ---
HPI - Chest Pain General: Chief Complaint: Chest Pain Stated Complaint: cp Time Seen by Provider: 03/22/22 21:13 Source: patient Mode of arrival: ambulatory Limitations: no limitations History of Present Illness: 76-year-old female who states that roughly 2 hours ago she started having some dizziness along with nausea vomiting once she states she also is having some chest pain and shortness of breath continues have chest pain along with the nausea she rates a 4 out of 10 she denies any worsening pro ving factors. Denies any fevers. Associated symptoms: Deny abdominal pain, dyspnea, fever(s), nausea or vomiting Review of Systems Const: Denies: fever(s), chills, body aches or change in appetite Eyes: Denies: blurry vision or eye discomfort ENMT: Denies: throat pain or dental pain Card: Reports: chest pain Resp: Denies: dyspnea GI: Denies: abdominal pain, nausea, vomiting or diarrhea : Denies: dysuria Musc: Denies: neck pain or back pain Skin/Breast: Denies: rash Neuro: Reports: dizziness Psych: Denies: depression Rick/Lymph: Denies: easy bruising All/Imm: Denies: urticaria PFSH ED PFSH: Medical History Diverticulosis large intestine w/o perforation or abscess w/bleeding History of colon polyps Kidney stone Surgical History History of kidney removal Hx of hysterectomy Previous back surgery Family History Father , AT AGE 66 Heart attack Mother , AT AGE 93 Stroke Social History Smoking and tobacco status: never smoked Second hand smoke exposure: No Alcohol intake: never Caregiver/support person: Yes Lives independently: Yes Household members: spouse Marital status: service: No Current occupational status: retired History of recent travel: Yes Details: [place] LAST WEEKEND Out of state: Yes Current gender identity: Female Special magdalena needs: No Physical Exam Const: COMMON NORMALS: patient oriented x3 GENERAL APPEARANCE: in distress and ill appearing HENMT: COMMON NORMALS: normocephalic and atraumatic HEAD & SCALP: normocephalic and atraumatic Eye: COMMON NORMALS: Equal, round and reactive pupils present and EOMs intact bilaterally PUPIL: Yes Equal, round and reactive pupils present Neck/C-Spine: COMMON NORMALS: full ROM and supple Chest: COMMONS NORMALS: normal inspection of the chest and normal palpation of entire chest wall Resp: COMMON NORMALS: normal respiratory effort, No retractions, No use of accessory muscles and clear to auscultation bilaterally AUSCULTATION: clear to auscultation bilaterally Cardio: COMMON NORMALS: regular rate, regular rhythm and No murmurs present (Cardio) RATE: regular rate RHYTHM: regular rhythm GI: COMMON NORMALS: Normal to inspection, nondistended, normoactive bowel sounds present, Soft to palpation, non-tender and no masses PALPATION: Yes Soft to palpation Extremity: COMMON NORMALS: normal to inspection and full ROM Neuro: COMMON NORMALS: patient oriented x3, moves all extremities and no focal motor deficits Psych: COMMON NORMALS: mental status grossly normal, Normal thought process present and cooperative THOUGHT PROCESS: Normal thought process present Skin: COMMON NORMALS: no rashes or lesions noted and no wounds GENERAL SKIN EXAM: no rashes or lesions noted Course Vital Signs: Vital signs: Vital Signs Temperature 97.7 F 03/22/22 21:20 Pulse Rate 75 03/22/22 23:15 Respiratory Rate 13 03/22/22 23:15 Blood Pressure 126/82 03/22/22 23:15 Pulse Oximetry 95 03/22/22 23:15 Oxygen Delivery Me thod 03/22/22 22:15 MDM - Chest Pain Medical Decision Making Patient presents here with chest pain consistent with NSTEMI her first EKG was here was normal her second and third EKGs does show new T wave inversions no ST elevation she did have an elevated troponin she continued to have some pain here I did place her on a nitro drip and she is currently completely pain-free I have talked to chief controller Dr. Kemp who at this time with her being pain-free will admit to the ICU on the nitro drip we will give Plavix and Lovenox he is going to see her in the morning for likely cardiac cardiac cath tech Data 03/22/22 21:24 03/22/22 21:24 Radiology Impressions Chest X-Ray 03/22/22 21:17 IMPRESSION: No acute findings. Laboratory Results WBC 10.5 10^3/uL (4.0-10.0) H 03/22/22 21: RBC 4.67 10^6/uL (4.1-5.3) 03/22/22 21:24 Hgb 14.1 g/dL (11.5-15.3) 03/22/22 21: Hct 44.4 % (37.0-47.0) 03/22/22 21: MCV 95.1 fl (81-99) 03/22/22 21:24 MCH 30.2 pg (28.0-34.0) 03/22/22 21: MCHC 31.8 g/dL (30.0-36.0) 03/22/22 21: RDW 12.1 % (12.1-15.1) 03/22/22 21: Plt Count 249 10^3/cmm (130-400) 03/22/22 21: MPV 10.4 fL (7.4-10.4) 03/22/22 21: Neut % (Auto) 64.3 % 03/22/22 21:24 Lymph % (Auto) 23.0 % 03/22/22 21: [place] % (Auto) 8.6 % 03/22/22 21: Eos % (Auto) 2.7 % 03/22/22 21: Baso % (Auto) 0.9 % 03/22/22 21: Neut # (Auto) 6.74 10^3/uL (1.8-7.7) 03/22/22 21: Lymph # (Auto) 2.4 10^3/uL (0.8-4.8) 03/22/22 21:24 [place] # (Auto) 0.9 10^3/uL (0.2-0.9) 03/22/22 21:24 Eos # (Auto) 0.3 10^3/uL (0.0-0.8) 03/22/22 21: Baso # (Auto) 0.1 10^3/uL (0.0-0.1) 03/22/22 21:24 Nucleated RBC % (auto) 0 % 03/22/22 21: Nucleated RBCs # 0.0 /100WBC 03/22/22 21:24 Sodium 142 mmol/L (136-145) 03/22/22 21:24 Potassium 4.3 mmol/L (3.5-5.1) 03/22/22 21:24 Chloride 104 mmol/L (98-107) 03/22/22 21:24 Carbon Dioxide 23 mmol/L (22-29) 03/22/22 21:24 Anion Gap 19.3 (5-19) H 03/22/22 21:24 BUN 19 mg/dL (8-23) 03/22/22 21:24 Creatinine 0.9 mg/dL (0.5-0.9) 03/22/22 21:24 GFR Calculation Not Reportable 03/22/22 21:24 Glucose 135 mg/dL (65-115) H 03/22/22 21:24 Calculated Osmolality 298 mOsm/kg (285-295) H 03/22/22 21:24 Calcium 9.8 mg/dL (8.5-10.5) 03/22/22 21:24 Total Bilirubin 0.4 mg/dL (0.15-1.2) 03/22/22 21:24 AST 24 U/L (0-32) 03/22/22 21:24 ALT 18 U/L (0-33) 03/22/22 21:24 Alkaline Phosphatase 117 U/L (35-105) H 03/22/22 21:24 Troponin T Baseline 26 ng/L (0-10) H 03/22/22 21:24 Troponin T 120 Minute 98.48 ng/L (0-10) H 03/22/22 22:56 Delta Troponin T 72.48 ABS# (0-10) H* 03/22/22 22:56 Total Protein 7.2 g/dL (6.6-8.7) 03/22/22 21:24 Albumin 4.6 g/dL (3.5-5.2) 03/22/22 21:24 Globulin 2.6 g/dL (1.3-4.6) 03/22/22 21:24 Lipase 31 U/L (13-60) 03/22/22 21:24 Urine Color Yellow (Yellow) 03/23/22 00:03 Urine Appearance Clear (CLEAR) 03/23/22 00:03 Urine pH 6 (5-7) 03/23/22 00:03 Ur Specific [place] 1.020 (1.005-1.030) 03/23/22 00:03 Urine Protein Trace (Negative) 03/23/22 00:03 Urine Glucose (UA) Norm (Normal) 03/23/22 00:03 Urine Ketones Negative (Negative) 03/23/22 00:03 Urine Blood Neg (Negative) 03/23/22 00:03 Urine Nitrate Negative (Negative) 03/23/22 00:03 Urine Bilirubin Neg (Negative) 03/23/22 00:03 Urine Urobilinogen Norm mg/dL (Negative) 03/23/22 00:03 Ur Leukocyte Esterase Negative (Negative) 03/23/22 00:03 Urine RBC None /hpf (0-2) 03/23/22 00:03 Urine WBC 0-4 /hpf (0-5) H 03/23/22 00:03 Ur Squamous Epith Cells 0-4 /hpf (0-5) H 03/23/22 00:03 Amorphous Sediment Not Reportable 03/23/22 00:03 Urine Bacteria None /hpf (NONE) 03/23/22 00:03 EKG Data EKG 1: I personally reviewed and interpreted this EKG as follows: EKG interpretation date: 03/22/22 EKG interpretation time: 21:18 Interpretation: sinus gil hr [address] or t wave abnormalities qrs 110 qtc 384 Critical Care Time Critical Care Time: Critical Care Time: Yes Total Critical Care Time: 50 Attestation: The high probability of a clinically significant, sudden or life threatening deterioration of the patient's cv system(s) required my full and direct attention, intervention and personal management. The critical care time is as shown. This time is in addition to time spent performing any reported procedures but includes the following: [x] Data and vital sign review and interpretation [x] Patient assessment, examination and intervention [x] Documentation [x] Medication orders and management Discharge Plan Discharge Patient Disposition: Admitted As Inpatient Clinical Impression: Non-ST elevation [place] (NSTEMI) Condition: Stable Coding Level of Care Code ED Mechanical Maintenance Technician for Chg Fwd Exam Comprehensive
[2022-03-22 21:35] LABS: Basophils # 0.1 10^3/uL (0.0-0.1); Basophils % 0.9 %; Eosinophils # 0.3 10^3/uL (0.0-0.8); Eosinophils % 2.7 %; Hematocrit 44.4 % (37.0-47.0); Hemoglobin 14.1 g/dL (11.5-15.3); Lymphocytes # 2.4 10^3/uL (0.8-4.8); Mean Corpuscular HGB Conc 31.8 g/dL (30.0-36.0); Mean Corpuscular Hemoglobin 30.2 pg (28.0-34.0); Mean Corpuscular Volume 95.1 fl (81-99); Mean Platelet Volume 10.4 fL (7.4-10.4); Monocytes # 0.9 10^3/uL (0.2-0.9); Monocytes % 8.6 %; Neutrophils # 6.74 10^3/uL (1.8-7.7); Neutrophils % 64.3 %; Nucleated Red Blood Cells % 0 %; Platelet Count 249 10^3/cmm (130-400); Red Blood Count 4.67 10^6/uL (4.1-5.3); Red Cell Distribution Width 12.1 % (12.1-15.1); White Blood Count 10.5 10^3/uL (4.0-10.0)
[2022-03-22 21:53] LABS: Alanine Aminotransferase 18 U/L (0-33); Albumin Level 4.6 g/dL (3.5-5.2); Alkaline Phosphatase 117 U/L (35-105); Aspartate Amino Transferase 24 U/L (0-32); Blood Urea Nitrogen 19 mg/dL (8-23); Calcium 9.8 mg/dL (8.5-10.5); Carbon Dioxide 23 mmol/L (22-29); Chloride 104 mmol/L (98-107); Creatinine Clr Calc Pharmacy 51.4232; Globulin 2.6 g/dL (1.3-4.6); Glucose 135 mg/dL (65-115); Lipase 31 U/L (13-60); Osmolality Calculated 298 mOsm/kg (285-295); Sodium 142 mmol/L (136-145); Total Bilirubin 0.4 mg/dL (0.15-1.2); Total Protein 7.2 g/dL (6.6-8.7); Troponin(5th) Baseline 26 ng/L (0-10)
[2022-03-22 21:58] LABS: Anion Gap 19.3 (5-19)
[2022-03-22 21:59] LABS: Potassium 4.3 mmol/L (3.5-5.1)
[2022-03-22 23:18] LABS: Troponin 5 2HR 98.48 ng/L (0-10)
--- NOTE | 2022-03-22 23:21 | ECG_ITS ---
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 Measurements Intervals [place] Rate: 66 P: 53 CT: 203 QRS: -35 QRSD: 96 T: 255 QT: 422 QTc: 444 Interpretive Statements SINUS RHYTHM LEFT AXIS DEVIATION [QRS AXIS < -30] PATTERN CONSISTENT WITH PULMONARY DISEASE MODERATE T-WAVE ABNORMALITY, CONSIDER LATERAL ISCHEMIA [-0.1+ mV T-WAVE IN I/aVL/V5/V6] MODERATE T-WAVE ABNORMALITY, CONSIDER INFERIOR ISCHEMIA [-0.1+ mV T-WAVE IN II/aVF] Compared to ECG 03/22/2022 21:18:02 Possible ischemia now present Sinus bradycardia no longer present T-wave abnormality still present Electronically Signed On 03-23-2022 8:09:44 ONLINE ADVERTISING DIRECTOR by Patrick Basurto M.D. [id number]
[2022-03-22 23:35] LABS: Troponin 5 2HR Delta 72.48 ABS# (0-10)
[2022-03-22] MEDS: nitroglycerin 0.4 mg sublingual Tablet SUBLINGUAL (23:42)
[2022-03-22] MEDS: enoxaparin 80 mg/0.8 mL Syringe 70 MG SUBCUT (23:42)
[2022-03-22] MEDS: HYDROmorphone 1 mg/mL INJ 1 mL 0.5 MG IVP (23:56)
[2022-03-23] VITALS (53 sets, daily range): BP systolic 93–161; BP diastolic 52–105; PULSE 72–127; RESP 15–46; TEMP 36.6–36.9; O2SAT 89–99
[2022-03-23] MEDS: nitroglycerin drip 50 MG/250 ML PREMIX IV (00:02)
[2022-03-23 00:21] LABS: Urine Color Yellow (Yellow)
[2022-03-23 00:22] LABS: Add Urine Microscopic? YES; Bilirubin Urine Neg (Negative); Blood Urine Neg (Negative); Glucose Urine UA Norm (Normal); Ketones Urine Negative (Negative); Leukocyte Esterase Urine Negative (Negative); Nitrate Urine Negative (Negative); Protein Urine Trace (Negative); Urine Appearance Clear (CLEAR); Urobilinogen Urine Norm (Negative); pH Urine 6 (5-7)
[2022-03-23 00:23] LABS: Add Urine Culture? No; Squamous Epithelial Cell Urine 0-4 /hpf (0-5); WBC Urine 0-4 /hpf (0-5)
[2022-03-23] MEDS: LORazepam 2 mg/mL INJ 1 mL 0.5 MG IVP (00:48)
[2022-03-23] MEDS: clopidogrel 300 mg Tablet 600 MG PO (00:49)
--- NOTE | 2022-03-23 02:15 | PC.NURSE ---
Patient continues to have nausea and vomiting. Nitro currently infusing at 20 and is chest pain free. Notified Dr. Tapia of need to increase nitro due to chest pain with relief at current time but continues to have n/v. Order for Reglan 5mg given.
[2022-03-23] MEDS: metoclopramide 5 mg/mL SDV 2 mL IVP (02:21)
--- NOTE | 2022-03-23 03:25 | PC.NURSE ---
Reports that nausea is better but is having some discomfort in chest. Increased nitro to 25mcg/min.
--- NOTE | 2022-03-23 03:55 | PM.HP ---
Providers/Chief Complaint Admitting Physician: Abdoul Tapia MD Primary Care Provider: Lennie Lew MD Chief Complaint: cp History of Present Illness Carolyne Morales is a 76 year old female without significant cardiac history presented with chief complaint of chest pain. Patient's symptoms of chest pain were associated with dizziness and nausea. Her symptoms started roughly around 7:30 PM. Initially she felt dizzy weak and lethargic. She started becoming nauseous experienced couple of episode of emesis followed by chest pain. She described her chest pain as severe substernal discomfort. Her chest pain was also associated with shortness of breath. She did not experience any abdominal pain, fever, diarrhea. In the ER she was diagnosed with NSTEMI, T wave inversions on EKG noted, she was started on nitroglycerin and given therapeutic Lovenox, nitroglycerin seemed to help her chest pain Review of Systems Const: Reports: chills, body aches and fatigue Eyes: Denies: change in vision ENMT: Denies: throat pain Card: Reports: chest pain Resp: Reports: dyspnea GI: Reports: nausea and vomiting : Denies: flank pain Musc: Denies: neck pain Skin/Breast: Denies: rash Neuro: Denies: headache(s) Psych: Reports: anxiety Endo: Denies: polyuria Rick/Lymph: Denies: easy bruising All/Imm: Denies: urticaria Medications/Allergies Home Medications Medication Instructions Recorded Confirmed Last Taken Type omeprazole 20 mg capsule,delayed 20 mg PO DAILY #30 caps 12/23/20 12/19/21 10/11/21 Rx release aspirin 81 mg tablet,delayed 81 mg PO DAILY 06/02/21 12/19/21 10/09/21 History release valsartan 160 mg tablet 160 mg PO DAILY #30 tabs 09/20/21 12/19/21 10/10/21 Rx dicyclomine 20 mg tablet 20 mg PO TID #90 tabs 12/19/21 12/19/21 Unknown Rx clonazepam 1 mg tablet 1 mg PO DAILY 30 days #30 tabs 03/16/22 Unknown Rx Allergies Allergy/AdvReac Type Severity Reaction Status Date / Time adhesive tape Allergy irritating Verified 12/19/21 15:54 skin amoxicillin [From Augmentin] Allergy GI upset Verified 12/19/21 15:54 clavulanic acid Allergy GI upset Verified 12/19/21 15:54 [From Augmentin] codeine Allergy Nausea Verified 12/19/21 15:54 Sulfa (Sulfonamide Allergy Rash Verified 12/19/21 15:54 Antibiotics) PFSH Acute PFSH: Medical History (Updated 03/23/22 @ 07:31 by Abdoul Tapia MD) Diverticulosis large intestine w/o perforation or abscess w/bleeding History of colon polyps Kidney stone Surgical History (Updated 03/23/22 @ 07:31 by Abdoul Tapia MD) History of colonoscopy History of hemorrhoidectomy History of kidney removal Hx laparoscopic cholecystectomy Hx of hysterectomy Previous back surgery Family History Father , AT AGE 66 Heart attack Mother , AT AGE 93 Stroke Social History Smoking and tobacco status: never smoked Second hand smoke exposure: No Alcohol intake: never Caregiver/support person: Yes Lives independently: Yes Household members: spouse Marital status: service: No Current occupational status: retired History of recent travel: Yes Details: [place] LAST WEEKEND Out of state: Yes Current gender identity: Female Special magdalena needs: No Vitals/I&O/Wt Last Vital Signs Temp 97.9 F 03/23/22 01:45 Pulse 89 03/23/22 02:30 Resp 46 H 03/23/22 02:30 BP 147/93 03/23/22 02:30 Pulse Ox 94 03/23/22 02:30 O2 Del Method 03/23/22 02:30 O2 Flow Rate 3 03/23/22 02:30 03/22/22 03/22/22 03/23/22 14:59 22:59 06:59 Intake Total 1015.05 / 1015.05 Balance 1015.05 / 1015.05 Weight last 48 hrs Weight 72.575 kg Physical Exam Narrative: Currently chest pain-free Nitroglycerin drip Hemodynamically stable On 5 L nasal cannula alert and oriented GCS 15 Pleasant cooperative Appears stated age No active chest pain GCS 15 S1, S2 Data 03/22/22 21:24 03/22/22 21:24 A&P Assessment and plan (1) Non-ST elevation [place] (NSTEMI): (2) Hypomagnesemia: Plan NSTEMI Currently patient on nitroglycerin drip Troponin trending up EKG with T wave inversion Hemodynamically stable Patient is n.p.o. We will go for coronary angiogram Dr. Tijerina is consulted Patient has been given loading dose aspirin and Plavix No previous history of OH Requested echo Hypoxia Chest x-ray unremarkable D-dimer unremarkable Wean oxygen to room air Hypomagnesemia: Repleted Chronic diarrhea status post cholecystectomy, patient has been suffering from recurrent nausea vomiting had colonoscopy done as well colonoscopy revealed diverticulosis, semipedunculated polyp removed Patient has neuropathy, median nerve entrapment, has followed up with pain management clinic and Dr. Thomas Full code Cardiac diet after angiogram We will follow-up with cardiology recommendations Attestations Medical Necessity Statement*: Anticipating more than 2 midnights Time Spent in Patient Care: 40 Coding Level of Care Code Acute Code for Chg Fwd Diagnoses Non-ST elevation [place] (NSTEMI) I21.4 Hypomagnesemia E83.42
--- NOTE | 2022-03-23 03:58 | USCV_ITS ---
Carolyne Morales Age: 76 Gender: F : 1945 Exam Date: 03/23/2022 08:50 Ordering Phys: Abdoul Tapia MD Technologist: Josue River [place]am [place] [facility] [place]: nstemi BP: 137 / 77 HR: 99 Rhythm: Sinus Technical Quality: Adequate MEASUREMENTS (Male / Female) Normal Values 2D ECHO LV Ejection Fraction MOD 2C 40.4 % LV Ejection Fraction 2C AL 40.8 % FINDINGS Left Ventricle Technically limited quality echocardiogram because of poor ultrasonic windows. Moderate to severely reduced LV systolic function with EF of 30 to 35%. Moderate to severe global hypokinesis is seen. Right Ventricle Normal in size and function Right Atrium Not well-visualized Left Atrium Not well-visualized Mitral Valve Grossly normal Aortic Valve Not well visualized Tricuspid Valve Not well visualized Pulmonic Valve Not well visualized Pericardium Limited visualization but no significant pericardial effusion Aorta Normal in size IVC Not visualized CONCLUSIONS Technically limited quality echocardiogram because of poor ultrasonic windows. Moderate to severely reduced LV systolic function with EF of 30 to 35%. Moderate to severe global hypokinesis is seen. Valvular structures are not well visualized. No comparison studies are available Patrick Basurto MD (Electronically Signed) Final Date: 23 March 2022 18:03 S
--- NOTE | 2022-03-23 04:10 | PC.NURSE ---
Resting comfortably in bed, reports chest pain and nausea are resolved at present time.
[2022-03-23] MEDS: sodium chloride 0.9% 1,000 ML 75 ML IV (04:19)
[2022-03-23 04:42] LABS: Basophils % 0.3 %; Hematocrit 40.9 % (37.0-47.0); Hemoglobin 12.7 g/dL (11.5-15.3); Lymphocytes # 0.7 10^3/uL (0.8-4.8); Lymphocytes % 5.7 %; Mean Corpuscular HGB Conc 31.1 g/dL (30.0-36.0); Mean Corpuscular Hemoglobin 30.4 pg (28.0-34.0); Mean Corpuscular Volume 97.8 fl (81-99); Mean Platelet Volume 10.5 fL (7.4-10.4); Monocytes # 0.5 10^3/uL (0.2-0.9); Monocytes % 4.2 %; Neutrophils # 10.97 10^3/uL (1.8-7.7); Neutrophils % 89.3 %; Nucleated Red Blood Cells % 0 %; Platelet Count 222 10^3/cmm (130-400); Red Blood Count 4.18 10^6/uL (4.1-5.3); Red Cell Distribution Width 12.3 % (12.1-15.1); White Blood Count 12.3 10^3/uL (4.0-10.0)
--- NOTE | 2022-03-23 04:46 | ECG_ITS ---
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 Measurements Intervals [place] Rate: 102 P: 61 HI: 200 QRS: -51 QRSD: 110 T: 245 QT: 382 QTc: 498 Interpretive Statements SINUS TACHYCARDIA POSSIBLE LEFT ATRIAL ENLARGEMENT [-0.1mV P-WAVE IN V1/V2] LEFT ANTERIOR FASCICULAR BLOCK [QRS AXIS <= -45, QR IN I, RS IN II] MODERATE T-WAVE ABNORMALITY, CONSIDER LATERAL ISCHEMIA [-0.1+ mV T-WAVE IN I/aVL/V5/V6] MODERATE T-WAVE ABNORMALITY, CONSIDER INFERIOR ISCHEMIA [-0.1+ mV T-WAVE IN II/aVF] Compared to ECG 03/22/2022 23:44:38 Left anterior fascicular block now present Sinus rhythm no longer present Left-axis deviation no longer present T-wave abnormality still present Possible ischemia still present Electronically Signed On 03-23-2022 8:39:04 REALTY SPECIALIST by Marissa Gibbons M.D. [id number]
[2022-03-23 04:57] LABS: D Dimer 0.51 ug/mIFEU (0-0.59)
[2022-03-23 05:02] LABS: Anion Gap 17.3 (5-19); Blood Urea Nitrogen 15 mg/dL (8-23); Calcium 9.2 mg/dL (8.5-10.5); Carbon Dioxide 22 mmol/L (22-29); Chloride 105 mmol/L (98-107); Glucose 156 mg/dL (65-115); Magnesium 1.6 mg/dL (1.7-2.3); Osmolality Calculated 294 mOsm/kg (285-295); Phosphorus 3.2 mg/dL (2.5-4.5); Potassium 4.3 mmol/L (3.5-5.1); Sodium 140 mmol/L (136-145)
[2022-03-23 05:12] LABS: Procalcitonin 0.04 ng/mL (0-0.5)
[2022-03-23 05:13] LABS: Thyroid Stimulating Hormone 4.04 uIU/mL (0.27-4.20)
[2022-03-23 05:16] LABS: Troponin 5 6HR 229.2 ng/L (0-10)
[2022-03-23 05:17] LABS: Troponin 5 6HR Delta 203.2 ng/L (0-12)
--- NOTE | 2022-03-23 05:20 | PC.NURSE ---
Notified Dr. Tapia of 6 hour troponin of 229.2, no new orders given.
[2022-03-23 05:51] LABS: Vitamin B12 790 pg/mL (232-1245)
--- NOTE | 2022-03-23 06:39 | P.CONIM_ITS ---
Providers/Reason For Consult Consulting Physician/Specialty*: Patrick Basurto MD/ Cardiology Reason for Consult*: NSTEMI Requesting Physician: Dr Gasca Attending Physician: Abdoul Tapia MD Primary Care Provider: Lennie Lew MD History of Present Illness History of Present Illness Carolyne oMrales is a 76 year old female with past medical history of hypertension and no significant prior cardiac history has presented to hospital with dizziness, nausea and chest pain. According to patient at 7:30 PM last night she started having dizzy spells and had nausea. Also had vomiting episodes. This was followed by chest pain. It was substernal and severe. When she came to the hospital her troponin level was elevated and she was started on nitro drip. EKG has a dynamic changes. She is in sinus rhythm with ST depression and T wave inversions in inferior and lateral leads. Troponin increased from a baseline of 26 to 229 at 6 hours. Her chest pain has subsided since starting nitro drip Review of Systems Const: Denies: fever(s), chills, body aches or change in appetite Eyes: Denies: blurry vision or eye discomfort ENMT: Denies: throat pain or dental pain Card: Reports: chest pain Resp: Denies: dyspnea GI: Denies: abdominal pain, nausea, vomiting or diarrhea : Denies: dysuria Musc: Denies: neck pain or back pain Skin/Breast: Denies: rash Neuro: Reports: dizziness Psych: Denies: depression Rick/Lymph: Denies: easy bruising All/Imm: Denies: urticaria Medications/Allergies Home Medications Medication Instructions Recorded Confirmed Last Taken Type omeprazole 20 mg capsule,delayed 20 mg PO DAILY #30 caps 12/23/20 03/23/22 03/22/22 07:00 Rx release aspirin 81 mg tablet,delayed 81 mg PO DAILY 06/02/21 03/23/22 03/21/22 21:00 History release valsartan 160 mg tablet 160 mg PO DAILY #30 tabs 09/20/21 03/23/22 03/22/22 20:00 Rx dicyclomine 20 mg tablet 20 mg PO TID #90 tabs 12/19/21 03/23/22 03/21/21 21:00 Rx clonazepam 1 mg tablet 1 mg PO DAILY 30 days #30 tabs 0103/23/22 03/21/22 21:00 Rx Allergies Allergy/AdvReac Type Severity Reaction Status Date / Time adhesive tape Allergy irritating Verified 12/19/21 15:54 skin amoxicillin [From Augmentin] Allergy GI upset Verified 12/19/21 15:54 clavulanic acid Allergy GI upset Verified 12/19/21 15:54 [From Augmentin] codeine Allergy Nausea Verified 12/19/21 15:54 Sulfa (Sulfonamide Allergy Rash Verified 12/19/21 15:54 Antibiotics) Current Medications Generic Name Dose Route Start Last Admin Trade Name Freq PRN Reason Stop Dose Admin Nitroglycerin/Dextrose 50 mg in 250 mls @ 0 mls/hr 03/22/22 23:45 03/23/22 03:24 Nitroglycerin Drip IV 25 mcg/min .Q0M NADYA 7.5 mls/hr Titration Protocol Per Protocol Sodium Chloride 1,000 mls @ 75 mls/hr 03/23/22 04:00 03/23/22 04:19 Sodium Chloride 0.9% IV 75 mls/hr .[id number] NADYA Administration Nitroglycerin 0.4 mg 03/22/22 23:38 03/22/22 23:42 Nitroglycerin 0.4 Mg Sublingual Tablet SUBLINGUAL 0.4 mg Q5M PRN Administration CHEST PAIN PFSH Acute PFSH: Medical History (Updated 03/23/22 @ 07:31 by Abdoul Tapia MD) Diverticulosis large intestine w/o perforation or abscess w/bleeding History of colon polyps Kidney stone Surgical History (Updated 03/23/22 @ 07:31 by Abdoul Tapia MD) History of colonoscopy History of hemorrhoidectomy History of kidney removal Hx laparoscopic cholecystectomy Hx of hysterectomy Previous back surgery Family History Father , AT AGE 66 Heart attack Mother , AT AGE 93 Stroke Social History Smoking and tobacco status: never smoked Second hand smoke exposure: No Alcohol intake: never Caregiver/support person: Yes Lives independently: Yes Household members: spouse Marital status: service: No Current occupational status: retired History of recent travel: Yes Details: [place] LAST WEEKEND Out of state: Yes Current gender identity: Female Special magdalena needs: No Vitals/I&O/Wt Last Vital Signs Temp 98.2 F 03/23/22 04:00 Pulse 105 H 03/23/22 06:00 Resp 30 H 03/23/22 06:00 BP 135/90 03/23/22 06:00 Pulse Ox 91 03/23/22 06:00 O2 Del Method 03/23/22 06:00 O2 Flow Rate 5 03/23/22 06:00 03/22/22 03/22/22 03/23/22 14:59 22:59 06:59 Intake Total 1075.05 / 1075.05 Balance 1075.05 / 1075.05 Weight last 48 hrs Weight 167 lb 3.2 oz Weight 160 lb Physical Exam Narrative: GENERAL: Patient is alert, awake and oriented x3. [] NECK: No jugular vein distension. [] HEENT: No cyanosis. No icterus. No pallor. [] HEART: Regular S1 and S2. No murmur, rub or gallop. [] LUNGS: Clear to auscultate bilaterally. [] ABDOMEN: Soft CENTRAL NERVOUS SYSTEM: Grossly nonfocal. [] EXTREMITIES: Lower extremities with 1+ edema bilaterally. Pulses palpable in the lower extremities, both dorsalis pedis and posterior tibial. [] Data 03/23/22 04:22 03/23/22 04:22 A&P Assessment and plan (1) Non-ST elevation [place] (NSTEMI): (2) Essential hypertension: Plan Patient has presented with non-ST elevation VT. She has chest pain symptoms and has troponin elevation. EKG has dynamic ST-T wave changes. Has been loaded with aspirin and Plavix. Continue nitroglycerine gtt and lovenox. We will proceed with coronary angiogram with possible percutaneous coronary intervention. Risks and benefits of the procedure of been discussed with the patient. She understands the risks and benefits and wants to proceed with it. Keep n.p.o. for now. Order echocardiogram Thank you for involving us with care of this patient. We will continue to follow. Please call with questions. Consult Attestations Medical Necessity Statement: Care expected to cross 2 midnights. Coding Level of Care Code Acute Code for [facility] Fwd Diagnoses Non-ST elevation [place] (NSTEMI) I21.4 Essential hypertension I10
--- NOTE | 2022-03-23 06:53 | XACV_ITS ---
Exam Room: [facility] Ht: 165 cm Wt: 76 kg BSA: 1.88 m2 Gender: Female : 1945 Exam Priority: Routine Procedure(s): Procedure Description: Diagnostic procedure Procedure Description: Left Heart Catheterization Procedure Description: Left ventriculography Procedure Description: Coronary Angiography Diagnostic Cath Status: Urgent Diagnostic Findings * INDICATION: 76 year old female with past medical history of hypertension and no significant prior cardiac history has presented to hospital with dizziness, nausea and chest pain. According to patient at 7:30 PM last night she started having dizzy spells and had nausea. Also had vomiting episodes. This was followed by chest pain. It was substernal and severe. When she came to the hospital her troponin level was elevated and she was started on nitro drip. EKG has a dynamic changes. She is in sinus rhythm with ST depression and T wave inversions in inferior and lateral leads. Troponin increased from a baseline of 26-229 that 6 hours.. * No significant disease noted in the Left Main, Left Anterior Descending, Right, or Circumflex coronary arteries. * Coronary angiography shows right dominance. PCI Status: Urgent Conclusions 1. No significant disease noted in the Left Main, Left Anterior Descending, Right, or Circumflex coronary arteries. 2. Mild left ventricular systolic dysfunction. Ejection fraction of 40%. Recommendations * Aggressive risk factor modification. Will need workup for alternative diagnosis for chest pain, troponin elevation and LV dysfunction. Will need echocardiogram as findings consistent with myocpericarditis vs stress cardiomyopathy. * Outpatient cardiology follow up in 1-2 weeks. Interventional RX Recommendation: medical therapy and/or counseling Diagnostic RX Recommendation: medical therapy and/or counseling Anticoagulation: Heparin Ventriculography Ejection Fraction: 40.0 % Pressures Phase:Rest AO : 116 / 89 ( 103 ) @ 7:15:00 AM 91 / 65 ( 77 ) @ 7:19:00 AM 477 / 253 ( 469 ) @ 7:23:00 AM 139 / 77 ( 103 ) @ 7:25:00 AM 138 / 77 ( 103 ) @ 7:25:00 AM LV : 145 / -1 / 28 @ 7:24:00 AM 142 / 5 / 26 @ 7:25:00 AM 131 / 6 / 4 @ 7:25:00 AM Valves Phase:DefaultPhase AV : 0.0 @ 7:38:04 AM 0.0 @ 7:38:04 AM AV Mean Gradient: 0.0 @ 7:38:04 AM 0.0 @ 7:38:04 AM Clinical Evaluation EBL: 5mL-10mL Procedural Details Procedure Consent Obtained. Admit Source: In Patient. Pre-Procedure Time Out. Identified patient by full name and date of as verbalized by the patient/guarantor. Does the consent match the physician's order: Yes. Accurate & Complete Informed Consent: Yes. Inpatient/Outpatient History & Physical on Chart: Yes. If H&P is completed, is and addenduem needed: No; If yes, is the addendum complete: N/A. Visualize and Verify Site with Patient/Guarantor: N/A. Relevant Radiology Images available: N/A. The risks, benefits, and alternatives of sedation and/or procedure were discussed by physician. The patient agrees to continue. Procedure started. [facility] Clinical Fraility Score: 3: Managing Well. Chest Pain Symptom Assessment: Typical Angina Symptoms. Clinical Research Nurse Indications: NSTEMI. Correct patient, site and procedure confirmed by cath team. Current diagnosis: NSTEMI. PERRLA. Strong, equal hand pinball machine repairer bilaterally. Lungs clear x 5 lobes. IV Site on Arrival: 20 gauge in the right anticubital. IV Site on Arrival: 20 gauge in the left anticubital. IV Fluids: 0.9% NaCl at KVO. 0 mL infused prior to radiographer cardiac catheterization. Pre Procedural Pulses: bilateral dorsalis pedis was 3+. Pre Procedural Pulses: bilateral radial was 2+. Oxygen started at 2liters/min via nasal canula. right groin was prepped with chloroprep then draped in the usual sterile fashion. right radial was prepped with chloroprep then draped in the usual sterile fashion. Physician notified. Baseline sample Acquired. HR: 110 BPM. Physician arrived. Physician scrubbed in. Immediate Pre-Procedure Time Out. Correct Patient: Yes; Correct Procedure: Yes; Correct Site: Yes; Correct Patient Position: Yes; Correct Supplies: Yes; Dried Flammable Prep: Yes; Blood Products Available: N/A;. Lidocaine 1% infiltrated to the right radial. Arterial access obtained. A 5 icelandic TIG catheter in over wire. Multiple views taken of left coronary artery. Catheter redirected to the RCA. Multiple views taken of right coronary artery. Catheter redirected to the LCA. Multiple views taken of left coronary artery. Catheter removed over the exchange wire. A 5 icelandic Angled Pig catheter in over wire. EDP Sample taken: LV 145/-2,28; HR: 108 BPM; SpO2: 93%. LV gram performed in WISEMAN @ 10 mL/second for a total of 30 mL. EDP Sample taken: LV 142/5,26; HR: 112 BPM; SpO2: 93%. Pullback taken: LV 131/6,4; AO 139/77(103); Mean: 0mmHg, Peak to Peak: 0mmHg, SEP: 9sec/min; HR: 110 BPM; SpO2: 93%. Catheter out. Physician review of cine films. Wire out. A TR Band was successful obtaining hemostatsis at the Right Radial artery insertion site. PERRLA. Strong, equal hand pinball machine repairer bilaterally. No VTE prophylaxis required. Medication's Wasted: Nitro = 49.8 mg. Medication's Wasted: Heparin = 1000 units. Medication's Wasted: Other = 1 mg. Medication's Wasted: Other = fentanyl 75 mcg. Total IV fluids: 29 mL. Post-op diagnosis: non obstructive CAD. Complications: none. Estimated blood loss: 5mL-10mL. Responsiveness - Normal response to verbal stimuli; alert and oriented, PERRLA. Airway - Unaffected, no intervention required; spontaneous ventilation. Circulation: W/N/L, pulses unchanged. Nausea/Vomiting: No. Procedure completed. Patient transferred by bed to CPRU. Vital chart was stopped. Access Site Site: Right Radial artery Sheath Size: 6 Fr Hemostasis Method: TR Band Hemostasis Success: Successful Procedure Medications Start: 7:08 AM Stop: 7:08 AM Medication: Versed 1 mg and Fentanyl 25 mcg Amount: 1 Route: I.V. Start: 7:13 AM Stop: 7:13 AM Medication: Nitrogylcerin Amount: 200 mcg Route: I.A. Start: 7:14 AM Stop: 7:14 AM Medication: Heparin Amount: 5000 units Route: I.V. I, the attending physician, have reviewed and verified all procedure medications. Yes, all medications given per verbal order History/Risk Factors Hypertension: No Dyslipidemia: No Peripheral Arterial Disease (PAD): No Myocardial Infarction (CO): No Obesity: No Renal Disease: No Tobacco Use: Never Prior Interventions PCI: No CABG: No Valve Surgery: No Report Signatures Finalized by Patrick Basurto MD on 03/26/2022 06:47 PM
--- NOTE | 2022-03-23 07:04 | PC.NURSE ---
Dr. Kemp to bedside, consent obtained, patient transported to skilled labor via bed. notified.
--- NOTE | 2022-03-23 07:07 | W.PM.OPSUD ---
Surgery/Procedure H&P Update DATE OF PROCEDURE: March 23, 2022 DATE H&P PERFORMED: 03/23/22 H&P UPDATE INFORMATION: I have reviewed H&P completed within last 30 days, I have examined patient prior to procedure and No changes to prior documentation PREOP DIAGNOSIS: NSTEMI PRIMARY INDICATION FOR PROCEDURE: NSTEMI PLANNED PROCEDURE: Left heart cath with possible percutaneous coronary intervention PATIENT REASSESSED PRIOR TO SEDATION, WITH NO CHANGE NOTED: Yes PHYSICAL EXAM: alert, oriented x 3, clear to auscultation bilaterally and regular rate & rhythm AIRWAY EVAL/ANESTHESIA PLAN: normal airway, ASA III, Local Anesthesia, Risks, benefits & alternatives of sedation and/or procedure discussed and Patient agrees to continue as planned ADDITIONAL INFORMATION: Moderate sedation
--- NOTE | 2022-03-23 07:40 | PC.NURSE ---
Pt arrived from supervisor labor gang post procedure to room CPRU 4. Pt placed on bedside monitoring and evaluation advisor, vital signs recorded. When asked about pain, reports still sore from yesterday. Denies acute pain at this time.
--- NOTE | 2022-03-23 08:12 | PC.NURSE ---
Pt transferred to ICU 4 via bed. Pt complains of epigastric pain and nausea. TR band site asymptomatic at this time.
--- NOTE | 2022-03-23 08:19 | PC.NURSE ---
Dr. Basurto notified of Chest/epigastric pain and nausea on transfer to ICU. Verbal orders given to ICU nurse for stat EKG, Gi cocktail. Ultrasound to perform bedside echo in ICU.
--- NOTE | 2022-03-23 08:25 | ECG_ITS ---
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 Measurements Intervals [place] Rate: 82 P: 54 OK: 195 QRS: -58 QRSD: 94 T: 231 QT: 408 QTc: 479 Interpretive Statements SINUS RHYTHM WITH SINUS ARRHYTHMIA LEFT ANTERIOR FASCICULAR BLOCK [QRS AXIS <= -45, QR IN I, RS IN II] MODERATE T-WAVE ABNORMALITY, CONSIDER ANTEROLATERAL ISCHEMIA [-0.1+ mV T-WAVE IN V3-V6] MODERATE T-WAVE ABNORMALITY, CONSIDER INFERIOR ISCHEMIA [-0.1+ mV T-WAVE IN II/aVF] Compared to ECG 03/23/2022 04:46:34 Sinus tachycardia no longer present T-wave abnormality still present Possible ischemia still present Electronically Signed On 03-23-2022 8:37:08 TAPE FOLDING MACHINE OPERATOR by Marissa Gibbons M.D. [id number]
[2022-03-23] MEDS: ondansetron 2 mg/ML SDV 2 mL 4 MG IVP (08:35)
--- NOTE | 2022-03-23 08:40 | CT_ITS ---
WS: [id number] CT CHEST ANGIOGRAPHY WITH REFORMATS HISTORY: chest pain. TECHNIQUE: Contiguous axial images are obtained through the chest during arterial injection of intrav enous contrast. Images are reconstructed to evaluate the pulmonary arteries. MIP imaging also reviewe d. All CT scans at [facility] use at least one of these dose optimization techniques: automat ed exposure control; mA and/or kV adjustment per patient size (includes targeted exams where dose is matched to clinical indication); or iterative reconstruction. CONTRAST: Omnipaque 350; 80 mL IV. DLP: 361.54 mGy.cm COMPARISON: None available. Very good opacification of the pulmonary arteries. No filling defects or pulmonary embolism. Pulmonar y arteries are equal sized of aorta. Mildly ectatic atherosclerotic aorta. No aneurysm. Moderate enla rgement of the LEFT heart chamber. No RIGHT heart strain. Mild pulmonary congestion. No pleural effusion. No pulmonary mass or nodule. No pneumonia. There is m ild thickening along the fissures which is probably due to mild fluid overload. Mildly prominent lymp hoid tissue at the hilar regions. No significant adenopathy. Mildly prominent inferior LEFT thyroid extends substernal. Bilateral breast implants. Mild increase i n thoracic kyphosis. CT/CT angio chest PE protcl [id number] IMPRESSION: 1. No pulmonary embolism. 2. Mild pulmonary congestion. 3. Moderate LEFT heart enlargement.
[2022-03-23] MEDS: perflutren protein-a microsphr 0.22 mg/mL SDV 3 mL IV (09:05)
[2022-03-23] MEDS: ALPRAZolam 0.5 mg Tablet PO ×2 (09:39)
[2022-03-23] MEDS: lidocaine 2% viscous 15 ML, aluminum-mag hydrox-simethicon 30 ML, sucralfate oral liq 1 GM PO (09:39)
[2022-03-23] MEDS: atorvastatin 40 mg Tablet 80 MG PO (09:39)
[2022-03-23] MEDS: pantoprazole 40 mg SDV IVP (09:41)
[2022-03-23] MEDS: ibuprofen 600 mg Tablet PO ×3 (09:42→20:13)
[2022-03-23] MEDS: iohexol 350 mg/mL 500 mL Btl (per mL) IV (11:11)
[2022-03-23] MEDS: dicyclomine 20 mg Tablet PO ×2 (15:50→20:13)
[2022-03-23] MEDS: FUROsemide 10 mg/mL SDV 4mL 40 MG IVP (15:50)
--- NOTE | 2022-03-23 16:15 | P.PN_ITS ---
Subjective Subjective: Patient was seen and examined this morning, she was complaining of chest pain with inspiration. Medications: Medication Review Details: Generic Name Dose Route Start Last Admin Trade Name Freq PRN Reason Stop Dose Admin Dicyclomine HCl 20 mg 03/23/22 15:00 03/23/22 15:50 Dicyclomine 20 M g Tablet PO 20 mg TID NADYA Administration Nitroglycerin/Dext juan j 50 mg in 250 mls @ 0 mls/hr 03/22/22 23:45 03/23/22 03:[address] ip IV 25 mcg/min .Q0M NADYA 7.5 mls/hr Titration Protocol Per Protocol Sodium Chloride 1,000 mls @ 75 ml s/hr 03/23/22 04:00 03/23/22 04:19 Sodium Chloride 0.9% IV 75 mls/hr .[id number] NADYA Administration Ibuprofen 600 mg 03/23/22 09:00 03/23/22 15:50 Ibuprofen 600 Mg Tablet PO 600 mg TID NADYA Administration Nitroglycerin 0.4 mg 03/22/22 23:38 03/22/22 23:42 Nitroglycerin 0. 4 Mg Sublingual Ta blet SUBLINGUAL 0.4 mg Q5M PRN Administration CHEST PAIN Ondansetron HCl 4 mg 03/23/22 03:55 03/23/22 08:35 Ondansetron 2 Mg /Ml Sdv 2 Ml IVP 4 mg Q6H PRN Administration NAUSEA AND VOMITI NG Pantoprazole Sodiu m 40 mg 03/23/22 09:00 03/23/22 09:41 Pantoprazole 40 Mg Sdv IVP 40 mg DAILY NADYA Administration Vitals/I&O/Wt Last Vital Signs Temp 98.2 F 03/23/22 04:00 Pulse 98 03/23/22 15:30 Resp 22 H 03/23/22 15:30 BP 99/83 03/23/22 12:30 Pulse Ox 92 03/23/22 15:30 O2 Del Method 03/23/22 08:40 O2 Flow Rate 5 03/23/22 06:00 03/23/22 03/23/22 03/23/22 06:59 14:59 22:59 Intake Total 1075.05 / 1075.05 120 / 120 Balance 1075.05 / 1075.05 120 / 120 Weight last 48 hrs Weight 75.841 kg Weight 72.575 kg Physical Exam Const: COMMON NORMALS: patient oriented x3 HENMT: COMMON NORMALS: normocephalic and atraumatic HEAD & SCALP: normocephalic and atraumatic Resp: COMMON NORMALS: clear to auscultation bilaterally EFFORT & INSPECTION: Yes symmetric chest movement AUSCULTATION: clear to auscultation bilaterally Cardio: COMMON NORMALS: regular rate, regular rhythm, S1 normal heart sound present, S2 normal heart sound present, No gallops present (Cardio), No murmurs present (Cardio), No rub (Cardio) and Peripheral pulses 2+ throughout RATE: regular rate RHYTHM: regular rhythm HEART SOUNDS: S1 normal heart sound present and S2 normal heart sound present PERIPHERAL PULSES: Peripheral pulses 2+ throughout GI: COMMON NORMALS: Normal to inspection, nondistended, normoactive bowel sounds present, Soft to palpation, non-tender, No hepatosplenomegaly present and no masses AUSCULTATION: Yes normoactive bowel sounds PALPATION: Yes Soft to palpation and Yes No hepatosplenomegaly present RECTAL EXAM: deferred Extremity: COMMON NORMALS: no clubbing, cyanosis or edema and no pedal edema Neuro: COMMON NORMALS: patient oriented x3 Data 03/23/22 04:22 03/23/22 04:22 A&P Assessment and plan (1) Non-ST elevation [place] (NSTEMI): (2) Hypomagnesemia: Plan 76-year-old female with no significant past medical history came in yesterday with chief complaint of Acute onset of chest pain with associated nausea and lightheadedness, started yesterday evening around 730. Patient was initially admitted for the management of NSTEMI: Underwent cardiac cath with nonocclusive coronary artery disease: Currently she is being managed for: Assessment: Elevated troponin: Possibly secondary to Pericarditis/myopericarditis: Troponin trend: 26-98-229. ESR: CRP: Patient currently has no EKG has failed to show any OH segment depression No significant pericardial effusion noted on 2D echo 2D echo: CTA chest: No PE, no aortic dissection, mild pulmonary congestion. when I interacted with the patient this morning she was complaining of chest pain with inspiration, she denied any recent fever, has no hypotension, Is not immunocompromised, has no JVD, patient is not on any anticoagulation. Currently she is complaining of nonproductive cough. Empirically she has been started on treatment of myopericarditis: Continue ibuprofen 600 mg p.o. 3 times daily for 2 weeks Colchicine 0.6 mg twice daily for up to 3 months if tolerated without any GI symptoms.Unfortunately patient has known history of chronic diarrhea, I am cautious regarding colchicine use. Continue Protonix for GI prophylaxis. Hypoxia: Possibly secondary to pulm vascular congestion Supplemental oxygen as needed: Chronic diarrhea status post cholecystectomy, patient has been suffering from recurrent nausea vomiting had colonoscopy done as well colonoscopy revealed diverticulosis, semipedunculated polyp removed Patient has neuropathy, median nerve entrapment, has [facility] and Dr. Thomas CODE STATUS: Full code DVT prophylaxis Attestations Medical Necessity Statement*: Patient is to be in hospital for management of elevated troponin. Coding Level of Care Code Acute Code for Chg Fwd Exam Detailed Diagnoses Non-ST elevation [place] (NSTEMI) I21.4 Hypomagnesemia E83.42
--- NOTE | 2022-03-23 19:15 | PC.NURSE ---
TR band removed at around 1200.
[2022-03-23] MEDS: colchicine 0.6 mg Tablet PO (19:32)
[2022-03-24] VITALS (48 sets, daily range): BP systolic 85–126; BP diastolic 45–78; PULSE 80–108; RESP 16–33; TEMP 36.5–37; O2SAT 79–99
[2022-03-24 03:52] LABS: Basophils # 0.1 10^3/uL (0.0-0.1); Basophils % 0.6 %; Eosinophils # 0.2 10^3/uL (0.0-0.8); Hematocrit 36.9 % (37.0-47.0); Hemoglobin 11.5 g/dL (11.5-15.3); Lymphocytes # 1.7 10^3/uL (0.8-4.8); Lymphocytes % 19.6 %; Mean Corpuscular HGB Conc 31.2 g/dL (30.0-36.0); Mean Corpuscular Hemoglobin 29.9 pg (28.0-34.0); Mean Corpuscular Volume 96.1 fl (81-99); Mean Platelet Volume 11.1 fL (7.4-10.4); Monocytes # 1.2 10^3/uL (0.2-0.9); Neutrophils # 5.52 10^3/uL (1.8-7.7); Neutrophils % 63.5 %; Nucleated Red Blood Cells % 0 %; Platelet Count 200 10^3/cmm (130-400); Red Blood Count 3.84 10^6/uL (4.1-5.3); Red Cell Distribution Width 12.4 % (12.1-15.1); White Blood Count 8.7 10^3/uL (4.0-10.0)
[2022-03-24 04:10] LABS: Erythrocyte Sedimentation Rate 5 mm/hr (0-15)
[2022-03-24 04:40] LABS: Alanine Aminotransferase 27 U/L (0-33); Albumin Level 3.4 g/dL (3.5-5.2); Alkaline Phosphatase 92 U/L (35-105); Anion Gap 13.6 (5-19); Aspartate Amino Transferase 30 U/L (0-32); Blood Urea Nitrogen 15 mg/dL (8-23); C Reactive Protein 53.2 mg/L (0.0-4.9); Carbon Dioxide 26 mmol/L (22-29); Chloride 105 mmol/L (98-107); Globulin 2.4 g/dL (1.3-4.6); Glucose 100 mg/dL (65-115); Osmolality Calculated 293 mOsm/kg (285-295); Potassium 3.6 mmol/L (3.5-5.1); Sodium 141 mmol/L (136-145); Total Bilirubin 1.4 mg/dL (0.15-1.2); Total Protein 5.8 g/dL (6.6-8.7)
--- NOTE | 2022-03-24 05:24 | PC.NURSE ---
0400 Dr. Tapia notified of patient's decreased BP; no new orders noted at this time
[2022-03-24] MEDS: enoxaparin 40 mg/0.4 mL Syringe SUBCUT (06:24)
--- NOTE | 2022-03-24 09:01 | PM.PN ---
Subjective Subjective: Patient is feeling better today. No chest pain. Coronary angiogram yesterday did not reveal significant CAD. Her echocardiogram showed moderate to severely reduced LV systolic function with EF of 30 to 35%. Inflammatory markers elevated with a CRP of 53. Findings consistent with myopericarditis. Vitals/I&O/Wt Last Vital Signs Temp 97.7 F 03/24/22 04:00 Pulse 108 H 03/24/22 08:57 Resp 18 03/24/22 08:57 BP 95/66 03/24/22 06:00 Pulse Ox 97 03/24/22 08:57 O2 Del Method 03/24/22 08:57 O2 Flow Rate 2 03/24/22 00:00 03/23/22 03/24/22 03/24/22 22:59 06:59 14:59 Intake Total 360 / 480 Output Total 1100 / 1100 250 / 1350 Balance -740 / -620 -250 / -870 Weight last 48 hrs Weight 160 lb 9.6 oz Weight 167 lb 3.2 oz Weight 160 lb Physical Exam Narrative: GENERAL: Patient is alert, awake and oriented x3. [] NECK: No jugular vein distension. [] HEENT: No cyanosis. No icterus. No pallor. [] HEART: Regular S1 and S2. No murmur, rub or gallop. [] LUNGS: Clear to auscultate bilaterally. [] ABDOMEN: Soft CENTRAL NERVOUS SYSTEM: Grossly nonfocal. [] EXTREMITIES: Lower extremities with 1+ edema bilaterally. Pulses palpable in the lower extremities, both dorsalis pedis and posterior tibial. [] Data 03/24/22 02:40 03/24/22 02:40 A&P Assessment and plan (1) Essential hypertension: (2) Troponin level elevated: (3) Myopericarditis: (4) TOR (acute kidney injury): Plan Patient's coronary artery disease I did not have any significant stenosis.Patient's findings are consistent with myopericarditis.CRP is elevated, she has low EF and pain is pleuritic. Ibuprofen started. Colchicine 0.6mg BID Renal function worsened slightly, could be secondary to ELY. Will recommend monitoring for today. Thank you for involving us with care of this patient. We will continue to follow. Please call with questions. Attestations Medical Necessity Statement*: Care expected to cross 2 midnights. Coding Level of Care Code Acute Code for Chg Fwd Diagnoses Essential hypertension I10 Troponin level elevated R77.8 Myopericarditis I31.9 TOR (acute kidney injury) N17.9
--- NOTE | 2022-03-24 09:51 | PC.CHAP ---
Pastoral Care Encounter/Spiritual Assessment Type of Contact [] Declined pelt dropper visit [] Patient/Family/Request visit [] Outpatient visit [] Follow-up visit [] Physician referral [] Code/Alert [x] Routine visit [] Staff referral [] Actively dying [] Patient sleeping [x] Family support [] [] Out of room [] Palliative care [] [x] Receiving care in room [] Pre-surgical visit [] Trauma [] Long length of stay [x] ICU visit [] Other: Relational/Emotional Strength [] Patient feels connected with others/family/visitors/staff [] Distress [] Loneliness/isolation [] Abandonment Spirituality of Patient [] Person of [place] [] Attends Latter Day of their [place] [] Believes in Prayer [] Reads Bible or Mandaeism materials [] There are Spiritual issues to be addressed Edgerman Interventions [x] Prayer [] Active listening [] Non-anxious presence [] Spiritual/emotional support [] Crisis/trauma care [] Spiritual counseling [] Bereavement support [] Provided bereavement packet [] Provided Bible/devotional materials [] Provided toy/stuffed animal, coloring book to patient or family member [] Provided Communion [] Anointing/[place] [] Salvation [x] Completed spiritual assessment [] Other: Impact on Illness or Injury [] Angry [] Fearful [] Anxious [] Often cries [] Exhaustion [] Unable to work [] Unable to attend sabianism [] Unable to walk/stand [] Unable to read [] Unable to drive [] Unable to eat/drink [] Unable to sleep [] Unable to be with family [] Patient intubated [] Other: Summary Time spent with patient
[2022-03-24] MEDS: colchicine 0.6 mg Tablet PO ×2 (10:02→17:17)
[2022-03-24] MEDS: ibuprofen 600 mg Tablet PO ×3 (10:02→20:01)
[2022-03-24] MEDS: CLONazepam 1 mg Tablet PO (10:03)
[2022-03-24] MEDS: dicyclomine 20 mg Tablet PO ×3 (10:03→20:01)
[2022-03-24] MEDS: pantoprazole 40 mg SDV IVP (10:05)
[2022-03-24] MEDS: metoprolol tartrate 25 mg Tablet 12.5 MG PO ×2 (10:05→20:01)
--- NOTE | 2022-03-24 15:01 | P.PN_ITS ---
Subjective Subjective: Patient was seen and examined this morning, denied any chest pain shortness of breath, serum creatinine has slightly trended up, has been afebrile. Blood pressure has been soft overnight. Medications: Medication Review Details: Generic Name Dose Route Start Last Admin Trade Name Freq PRN Reason Stop Dose Admin Clonazepam 1 mg 03/24/22 09:00 03/24/22 10:03 Clonazepam 1 Mg Tablet PO 1 mg DAILY NADYA Administration Colchicine 0.6 mg 03/23/22 18:00 03/24/22 10:02 Colchicine 0.6 M g Tablet PO 0.6 mg BID NADYA Administration Dicyclomine HCl 20 mg 03/23/22 15:00 03/24/22 14:49 Dicyclomine 20 M g Tablet PO 20 mg TID NADYA Administration Enoxaparin Sodium 40 mg 03/24/22 07:00 03/24/22 06:24 Enoxaparin 40 Mg /0.4 Ml Syringe SUBCUT 40 mg Q24H NADYA Administration Ibuprofen 600 mg 03/23/22 09:00 03/24/22 14:48 Ibuprofen 600 Mg Tablet PO 600 mg TID NADYA Administration Metoprolol Tartrat e 12.5 mg 03/24/22 09:40 03/24/22 10:05 Metoprolol Tartr ate 25 Mg Tablet PO 12.5 mg BID@0900,2100 NADYA Administration Nitroglycerin 0.4 mg 03/22/22 23:38 03/22/22 23:42 Nitroglycerin 0. 4 Mg Sublingual Ta blet SUBLINGUAL 0.4 mg Q5M PRN Administration CHEST PAIN Ondansetron HCl 4 mg 03/23/22 03:55 03/23/22 08:35 Ondansetron 2 Mg /Ml Sdv 2 Ml IVP 4 mg Q6H PRN Administration NAUSEA AND VOMITI NG Pantoprazole Sodiu m 40 mg 03/23/22 09:00 03/24/22 10:05 Pantoprazole 40 Mg Sdv IVP 40 mg DAILY NADYA Administration Vitals/I&O/Wt Last Vital Signs Temp 97.7 F 03/24/22 10:00 Pulse 85 03/24/22 14:00 Resp 27 H 03/24/22 14:00 BP 96/59 03/24/22 14:00 Pulse Ox 93 03/24/22 14:00 O2 Del Method 03/24/22 08:57 O2 Flow Rate 2 03/24/22 00:00 03/24/22 03/24/22 03/24/22 06:59 14:59 22:59 Intake Total 600 / 600 Output Total 250 / 1350 375 / 375 Balance -250 / -870 225 / 225 Weight last 48 hrs Weight 72.847 kg Weight 75.841 kg Weight 72.575 kg Physical Exam Const: COMMON NORMALS: patient oriented x3 HENMT: COMMON NORMALS: normocephalic and atraumatic HEAD & SCALP: normocephalic and atraumatic Resp: COMMON NORMALS: clear to auscultation bilaterally EFFORT & INSPECTION: Yes symmetric chest movement AUSCULTATION: clear to auscultation bilaterally Cardio: COMMON NORMALS: regular rate, regular rhythm, S1 normal heart sound present, S2 normal heart sound present, No gallops present (Cardio), No murmurs present (Cardio), No rub (Cardio) and Peripheral pulses 2+ throughout RATE: regular rate RHYTHM: regular rhythm HEART SOUNDS: S1 normal heart sound present and S2 normal heart sound present PERIPHERAL PULSES: Peripheral pulses 2+ throughout GI: COMMON NORMALS: Normal to inspection, nondistended, normoactive bowel sounds present, Soft to palpation, non-tender, No hepatosplenomegaly present and no masses AUSCULTATION: Yes normoactive bowel sounds PALPATION: Yes Soft to palpation and Yes No hepatosplenomegaly present RECTAL EXAM: deferred Extremity: COMMON NORMALS: no clubbing, cyanosis or edema and no pedal edema Neuro: COMMON NORMALS: patient oriented x3 Data 03/24/22 02:40 03/24/22 02:40 A&P Assessment and plan (1) Non-ST elevation [place] (NSTEMI): (2) Hypomagnesemia: Plan 76-year-old female with no significant past medical history came in yesterday with chief complaint of Acute onset of chest pain with associated nausea and lightheadedness, started yesterday evening around 730. Patient was initially admitted for the management of NSTEMI: Underwent cardiac cath with nonocclusive coronary artery disease: Currently she is being managed for: Assessment: Elevated troponin: Possibly secondary to Pericarditis/myopericarditis: Troponin trend: 229. ESR: 5 CRP:53.2 Patient currently has no EKG has failed to show any MT segment depression No significant pericardial effusion noted on 2D echo 2D echo:Moderate to severely reduced LV systolic function with EF of 30 to 35%.? Moderate to severe global hypokinesis is seen. CTA chest: No PE, no aortic dissection, mild pulmonary congestion. when I interacted with the patient this morning she was complaining of chest pain with inspiration, she denied any recent fever, has no hypotension, Is not immunocompromised, has no JVD, patient is not on any anticoagulation. Currently she is complaining of nonproductive cough. Empirically she has been started on treatment of myopericarditis: Continue ibuprofen 600 mg p.o. 3 times daily for 2 weeks Colchicine 0.6 mg twice daily for up to 3 months if tolerated without any GI symptoms.Unfortunately patient has known history of chronic diarrhea, I am cautious regarding colchicine use. Continue Protonix for GI prophylaxis. Hypoxia: Possibly secondary to pulm vascular congestion: Supplemental oxygen as needed: HFrEF : Currently compensated, possibly secondary to myopericarditis. Elevated proBNP: 31434 Chronic diarrhea status post cholecystectomy, patient has been suffering from recurrent nausea vomiting had colonoscopy done as well colonoscopy revealed diverticulosis, semipedunculated polyp removed Patient has neuropathy, median nerve entrapment, has followed up with pain management clinic and Dr. Thomas CODE STATUS: Full code DVT prophylaxis Attestations Medical Necessity Statement*: Needs to be in hospital for management of shasta pericarditis. Coding Level of Care Code Acute Code for Chg Fwd Diagnoses Non-ST elevation [place] (NSTEMI) I21.4 Hypomagnesemia E83.42
[2022-03-25] VITALS (23 sets, daily range): BP systolic 95–145; BP diastolic 45–94; PULSE 67–99; RESP 16–33; TEMP 36.8; O2SAT 83–97
[2022-03-25 02:36] LABS: Basophils # 0.1 10^3/uL (0.0-0.1); Basophils % 0.8 %; Eosinophils # 0.4 10^3/uL (0.0-0.8); Eosinophils % 4.9 %; Hematocrit 38.1 % (37.0-47.0); Hemoglobin 11.8 g/dL (11.5-15.3); Lymphocytes # 1.9 10^3/uL (0.8-4.8); Lymphocytes % 25.2 %; Mean Corpuscular Hemoglobin 30.1 pg (28.0-34.0); Mean Corpuscular Volume 97.2 fl (81-99); Mean Platelet Volume 10.7 fL (7.4-10.4); Monocytes # 1.1 10^3/uL (0.2-0.9); Monocytes % 14.4 %; Neutrophils # 4.01 10^3/uL (1.8-7.7); Neutrophils % 54.4 %; Nucleated Red Blood Cells % 0 %; Platelet Count 203 10^3/cmm (130-400); Red Blood Count 3.92 10^6/uL (4.1-5.3); Red Cell Distribution Width 12.5 % (12.1-15.1); White Blood Count 7.4 10^3/uL (4.0-10.0)
[2022-03-25 03:03] LABS: Alanine Aminotransferase 42 U/L (0-33); Albumin Level 3.3 g/dL (3.5-5.2); Alkaline Phosphatase 110 U/L (35-105); Aspartate Amino Transferase 51 U/L (0-32); Blood Urea Nitrogen 24 mg/dL (8-23); Calcium 8.8 mg/dL (8.5-10.5); Carbon Dioxide 25 mmol/L (22-29); Chloride 106 mmol/L (98-107); Globulin 2.3 g/dL (1.3-4.6); Glucose 106 mg/dL (65-115); Osmolality Calculated 292 mOsm/kg (285-295); Sodium 139 mmol/L (136-145); Total Bilirubin 0.7 mg/dL (0.15-1.2); Total Protein 5.6 g/dL (6.6-8.7)
[2022-03-25] MEDS: enoxaparin 40 mg/0.4 mL Syringe SUBCUT (06:37)
[2022-03-25] MEDS: ibuprofen 600 mg Tablet PO (08:14)
[2022-03-25] MEDS: metoprolol tartrate 25 mg Tablet 12.5 MG PO (08:15)
[2022-03-25] MEDS: dicyclomine 20 mg Tablet PO (08:15)
[2022-03-25] MEDS: CLONazepam 1 mg Tablet PO (08:15)
[2022-03-25] MEDS: pantoprazole 40 mg SDV IVP (08:16)
--- NOTE | 2022-03-25 09:23 | PM.PN ---
Subjective Subjective: Patient is chest pain free. She has single kidney and Cr and BUN have uptrended. Vitals/I&O/Wt Last Vital Signs Temp 98.2 F 03/24/22 18:00 Pulse 68 03/25/22 06:00 Resp 20 H 03/25/22 06:00 BP 133/68 03/25/22 06:00 Pulse Ox 94 03/25/22 06:00 O2 Del Method 03/24/22 20:00 O2 Flow Rate 2 03/24/22 00:00 03/24/22 03/25/22 03/25/22 22:59 06:59 14:59 Intake Total 360 / 960 Output Total 304 / 679 400 / 1079 Balance 56 / 281 -400 / -119 Weight last 48 hrs Weight 159 lb Weight 160 lb 9.6 oz Physical Exam Narrative: GENERAL: Patient is alert, awake and oriented x3. [] NECK: No jugular vein distension. [] HEENT: No cyanosis. No icterus. No pallor. [] HEART: Regular S1 and S2. No murmur, rub or gallop. [] LUNGS: Clear to auscultate bilaterally. [] ABDOMEN: Soft CENTRAL NERVOUS SYSTEM: Grossly nonfocal. [] EXTREMITIES: Lower extremities with 1+ edema bilaterally. Pulses palpable in the lower extremities, both dorsalis pedis and posterior tibial. [] Data 03/25/22 02:12 03/25/22 02:12 A&P Assessment and plan (1) Essential hypertension: (2) Troponin level elevated: (3) Myopericarditis: (4) TOR (acute kidney injury): Plan Patient does not have any significant CAD. Her findings are consistent with myopericarditis with elevated CRP. She was put on high-dose ibuprofen however she has single kidney and renal function has slightly deteriorated. We will recommend switching to aspirin 650 mg three times daily. Continue colchicine 0.6mg BID Thank you for involving us with care of this patient.? Patient is stable to be discharged from cardiology standpoint. Close cardiology follow up with outpatient BMP.? Please call with questions. Attestations Medical Necessity Statement*: Care expected to cross 2 midnights. Coding Level of Care Code Acute Code for [facility] Fwd Diagnoses Essential hypertension I10 Troponin level elevated R77.8 Myopericarditis I31.9 TOR (acute kidney injury) N17.9
[2022-03-25] MEDS: colchicine 0.6 mg Tablet PO (09:52)
--- NOTE | 2022-03-25 09:59 | PM.DCS ---
Discharge Providers Date of Admission: 03/23/22 00:23 Date of Discharge: March 25, 2022 Attending Provider at Admission: Abdoul Tapia MD Attending Provider at Discharge: Erik Figueroa MD Primary Care Provider: Lennie Lew MD Diagnoses at Discharge Discharge Diagnosis (1) Non-ST elevation ID (NSTEMI): Status: Acute (2) Hypomagnesemia: Status: Acute Reason for Visit Reason for Visit: cp Hospital Course Hospital Course 76-year-old female with no significant past medical history came in yesterday with chief complaint of Acute onset of chest pain with associated nausea and lightheadedness, started yesterday evening around 730.? Patient was initially admitted for the management of NSTEMI: Underwent cardiac cath with nonocclusive coronary artery disease: She was diagnosed with myopericarditis: ESR: 5, CRP:53.2 Patient currently has no, EKG has failed to show any MA segment depression No significant pericardial effusion noted on 2D echo 2D echo:Moderate to severely reduced LV systolic function with EF of 30 to 35%.? Moderate to severe global hypokinesis is seen. CTA chest: No PE, no aortic dissection, mild pulmonary congestion. She was started on ibuprofen during the hospital stay, but was discharged on aspirin high-dose 625 mg p.o. 4 times daily for another 2 weeks, was also started on colchicine 0.6 mg p.o. twice daily, can be given up to 3 months if properly tolerated, regarding aspirin requirement for tapering protocol, follow-up cardiology as outpatient decision regarding dosing protocol as well as duration can be taken at that point based on her clinical progression. Patient experienced slightly elevated creatinine during hospital stay, possibly secondary to contrast given during CTA as well as cath, losartan has been kept on hold on discharge for another couple of days, her blood pressure is also soft, has been asked to monitor blood pressure at home, if systolic blood pressure persistently remains in 90s, losartan can be continued to be held, can be resumed once systolic blood pressure is in 120s to 130s. Diastolic blood pressure is in 80s to 90s. Patient overall has responded well to medical management and is being discharged stable condition to home. Physical Exam Const: COMMON NORMALS: patient oriented x3 HENMT: COMMON NORMALS: normocephalic and atraumatic HEAD & SCALP: normocephalic and atraumatic Resp: COMMON NORMALS: clear to auscultation bilaterally EFFORT & INSPECTION: Yes symmetric chest movement AUSCULTATION: clear to auscultation bilaterally Cardio: COMMON NORMALS: regular rate, regular rhythm, S1 normal heart sound present, S2 normal heart sound present, No gallops present (Cardio), No murmurs present (Cardio), No rub (Cardio) and Peripheral pulses 2+ throughout RATE: regular rate RHYTHM: regular rhythm HEART SOUNDS: S1 normal heart sound present and S2 normal heart sound present PERIPHERAL PULSES: Peripheral pulses 2+ throughout GI: COMMON NORMALS: Normal to inspection, nondistended, normoactive bowel sounds present, Soft to palpation, non-tender, No hepatosplenomegaly present and no masses AUSCULTATION: Yes normoactive bowel sounds PALPATION: Yes Soft to palpation and Yes No hepatosplenomegaly present RECTAL EXAM: deferred Extremity: COMMON NORMALS: no clubbing, cyanosis or edema and no pedal edema Neuro: COMMON NORMALS: patient oriented x3 Discharge Data Studies Completed and Pending Completed Studies During Hospitalization Category Date Time Status CT angio chest PE protcl [id number] Routine Cat Scan 03/23/22 08:40 Completed XR chest 1V portable [id number] Stat Exams 03/22/22 21:17 Completed CV. echo wo/w contrast [id number] Routine Ultrasound 03/23/22 03:58 Completed Pending at discharge Category Date Time Status EQUIPMENT APPLICATION SPECIALIST request for service Routine Exams 03/23/22 06:53 Taken CBC Auto Diff [Complete Blood Count w/Auto] AM LABS Lab 03/26/22 04:00 Ordered CMP [Comprehensive Metabolic Panel] AM LABS Lab 03/26/22 04:00 Ordered Radiology Impressions Chest X-Ray 03/22/22 21:17 IMPRESSION: No acute findings. Chest CTA 03/23/22 08:40 IMPRESSION: 1. No pulmonary embolism. 2. Mild pulmonary congestion. 3. Moderate LEFT heart enlargement. Laboratory Results WBC 7.4 10^3/uL (4.0-10.0) 03/25/22 02:12 RBC 3.92 10^6/uL (4.1-5.3) L 03/25/22 02:12 Hgb 11.8 g/dL (11.5-15.3) 03/25/22 02:12 Hct 38.1 % (37.0-47.0) 03/25/22 02:12 MCV 97.2 fl (81-99) 03/25/22 02:12 MCH 30.1 pg (28.0-34.0) 03/25/22 02:12 MCHC 31.0 g/dL (30.0-36.0) 03/25/22 02:12 RDW 12.5 % (12.1-15.1) 03/25/22 02:12 Plt Count 203 10^3/cmm (130-400) 03/25/22 02:12 MPV 10.7 fL (7.4-10.4) H 03/25/22 02:12 Neut % (Auto) 54.4 % 03/25/22 02:12 Lymph % (Auto) 25.2 % 03/25/22 02:12 [place] % (Auto) 14.4 % 03/25/22 02:12 Eos % (Auto) 4.9 % 03/25/22 02:12 Baso % (Auto) 0.8 % 03/25/22 02:12 Neut # (Auto) 4.01 10^3/uL (1.8-7.7) 03/25/22 02:12 Lymph # (Auto) 1.9 10^3/uL (0.8-4.8) 03/25/22 02:12 [place] # (Auto) 1.1 10^3/uL (0.2-0.9) H 03/25/22 02:12 Eos # (Auto) 0.4 10^3/uL (0.0-0.8) 03/25/22 02:12 Baso # (Auto) 0.1 10^3/uL (0.0-0.1) 03/25/22 02:12 Nucleated RBC % (auto) 0 % 03/25/22 02:12 Nucleated RBCs # 0.0 /100WBC 03/25/22 02:12 ESR 5 mm/hr (0-15) 03/24/22 02:40 D-Dimer 0.51 ug/mIFEU (0-0.59) 03/23/22 04:22 Sodium 139 mmol/L (136-145) 03/25/22 02:12 Potassium 4.0 mmol/L (3.5-5.1) 03/25/22 02:12 Chloride 106 mmol/L (98-107) 02/04/23 02:12 Carbon Dioxide 25 mmol/L (22-29) 03/25/22 02:12 Anion Gap 12.0 (5-19) 03/25/22 02:12 BUN 24 mg/dL (8-23) H 03/25/22 02:12 Creatinine 1.1 mg/dL (0.5-0.9) H 03/25/22 02:12 GFR Calculation Not Reportable 03/25/22 02:12 Glucose 106 mg/dL (65-115) 03/25/22 02:12 Calculated Osmolality 292 mOsm/kg (285-295) 03/25/22 02:12 Calcium 8.8 mg/dL (8.5-10.5) 03/25/22 02:12 Phosphorus 3.2 mg/dL (2.5-4.5) 03/23/22 04:22 Magnesium 1.6 mg/dL (1.7-2.3) L 03/23/22 04:22 Total Bilirubin 0.7 mg/dL (0.15-1.2) 03/25/22 02:12 AST 51 U/L (0-32) H 03/25/22 02:12 ALT 42 U/L (0-33) H 03/25/22 02:12 Alkaline Phosphatase 110 U/L (35-105) H 03/25/22 02:12 Troponin T Baseline 26 ng/L (0-10) H 03/22/22 21:24 Troponin T 120 Minute 98.48 ng/L (0-10) H 03/22/22 22:56 Delta Troponin T 72.48 ABS# (0-10) H* 03/22/22 22:56 Troponin T Hi Sens 6Hr 229.2 ng/L (0-10) H 03/23/22 04:22 Troponin T Hi Sens 6Hr Delta 203.2 ng/L (0-12) H* 03/23/22 04:22 C-Reactive Protein 53.2 mg/L (0.0-4.9) H 03/24/22 02:40 NT-Pro-B Natriuret Pep 84441 pg/mL (0-450) H 03/24/22 02:40 Total Protein 5.6 g/dL (6.6-8.7) L 03/25/22 02:12 Albumin 3.3 g/dL (3.5-5.2) L 03/25/22 02:12 Globulin 2.3 g/dL (1.3-4.6) 03/25/22 02:12 Lipase 31 U/L (13-60) 03/22/22 21:24 Vitamin B12 790 pg/mL (232-1245) 03/23/22 04:22 Procalcitonin 0.04 ng/mL (0-0.5) 03/23/22 04:22 TSH 4.04 uIU/mL (0.27-4.20) 03/23/22 04:22 Urine Color Yellow (Yellow) 03/23/22 00:03 Urine Appearance Clear (CLEAR) 03/23/22 00:03 Urine pH 6 (5-7) 03/23/22 00:03 Ur Specific [place] 1.020 (1.005-1.030) 03/23/22 00:03 Urine Protein Trace (Negative) 03/23/22 00:03 Urine Glucose (UA) Norm (Normal) 03/23/22 00:03 Urine Ketones Negative (Negative) 03/23/22 00:03 Urine Blood Neg (Negative) 03/23/22 00:03 Urine Nitrate Negative (Negative) 03/23/22 00:03 Urine Bilirubin Neg (Negative) 03/23/22 00:03 Urine Urobilinogen Norm mg/dL (Negative) 03/23/22 00:03 Ur Leukocyte Esterase Negative (Negative) 03/23/22 00:03 Urine RBC None /hpf (0-2) 03/23/22 00:03 Urine WBC 0-4 /hpf (0-5) H 03/23/22 00:03 Ur Squamous Epith Cells 0-4 /hpf (0-5) H 03/23/22 00:03 Amorphous Sediment Not Reportable 03/23/22 00:03 Urine Bacteria None /hpf (NONE) 03/23/22 00:03 Vitals Last Vital Signs Temp 98.2 F 03/24/22 18:00 Pulse 80 03/25/22 08:00 Resp 16 03/25/22 08:00 BP 133/68 03/25/22 06:00 Pulse Ox 94 03/25/22 08:00 O2 Del Method 03/25/22 08:00 O2 Flow Rate 2 03/24/22 00:00 Discharge Plan Discharge Patient Disposition: Home Condition: Stable Prescriptions: New aspirin 650 mg tablet,delayed release (DR/EC) 650 mg PO QID 14 Days Qty: 56 0RF colchicine 0.6 mg Tablet 0.6 mg PO BID 30 Days Qty: 60 3RF Continued omeprazole 20 mg capsule,delayed release(DR/EC) 20 mg PO DAILY Qty: 30 4RF dicyclomine 20 mg tablet 20 mg PO TID Qty: 90 1RF clonazepam 1 mg tablet 1 mg PO DAILY 30 Days Qty: 30 3RF Held valsartan 160 mg tablet 160 mg PO DAILY Qty: 30 3RF Hold Instructions: Resume on 03/28/22. Discontinued aspirin 81 mg Tablet,Delayed Release (Dr/Ec) 81 mg PO DAILY Hold Instructions: Resume on 08/17/21. Discharge Orders: Discharge Order (Routine); Ordered 03/25/22 Ordered By: Erik Figueroa Other Ambulatory Orders: Basic Metabolic Panel (Routine) Timeframe: 1 Week Facility: [facility] - Location: Lab - Main Lab Ordered By: Erik Figueroa Referrals: Margi Youngblood FNP [Nurse Practitioner] - (post angiogram ,hospital follow up . appointment scheduled :Margi Youngblood APN nurse, date of time of 2:30 pm ,at this time will refer to Cardiology appointment.) Lennie Lew MD [Primary Care Provider] - 4-7 days (please follow up [facility] Primary Care Physican Lennie Lew for 4-7 day will need lab test (bmp) post angiogram ,post hospital stay JASPAL FROM [facility] WILL CALL YOU WITH AVAILABLE APPOINTMENT NEXT WEEK.) Discharge Diet: Cardiac Patient Instructions: Aspirin (By mouth) (Isha Extra Strength, Isha Aspirin Children[facility],..., Colchicine (By mouth) (Colcrys, Mitigare), Low-Sodium Diet (GEN), Opioid Safety Discharge Attestations Time Spent in Discharge Care*: greater than 30 min Quality Metrics Clinical Quality Measures [ No reported AMI, CVA or VTE this stay] Coding Level of Care Code Acute Code for Chg Fwd Diagnoses Non-ST elevation ID (NSTEMI) I21.4 Hypomagnesemia E83.42
--- NOTE | 2022-03-25 10:52 | PC.NURSE ---
Patient discharged Spouse at bedside during education. Followup appointments, new medication, and activity teaching done with patient. Patient signature form signed. Patient discharged with spouse. no questions.
== END 2022-03-25 11:09 | disposition home or self-care (01) | DRG 287 ==
LOC: ER 03-23 00:24 → ICU 03-23 00:42
PROVIDERS: Internal Medicine; Admitting Provider Internal Medicine; Emergency Provider Emergency Medicine; PCP Family Medicine; Visit Provider Internal Medicine
PROC: 4A023N7 Measurement of Cardiac Sampling and Pressure, Left Heart, Percutaneous Approach (ICD-10-PCS; principal; 2022-03-23 07:40)
DX: I31.9 Disease of pericardium, unspecified (principal); I50.22 Chronic systolic (congestive) heart failure; R77.8 Other specified abnormalities of plasma proteins; E83.42 Hypomagnesemia; I25.10 Atherosclerotic heart disease of native coronary artery without angina pectoris; I11.0 Hypertensive heart disease with heart failure; Z88.1 Allergy status to other antibiotic agents; Z88.2 Allergy status to sulfonamides; Z91.048 Other nonmedicinal substance allergy status; K52.9 Noninfective gastroenteritis and colitis, unspecified; K57.90 Diverticulosis of intestine, part unspecified, without perforation or abscess without bleeding; Z90.5 Acquired absence of kidney; G56.00 Carpal tunnel syndrome, unspecified upper limb; G62.9 Polyneuropathy, unspecified
CPT/HCPCS: 36415; 71045; 71275; 80048; 80053; 81001; 82607; 83690; 83735; 83880; 84100; 84145; 84443; 84484; 85025; 85378; 85651; 86140; 93005; 93458; 96365; 96372; 96374; 96375; 96376; 99152; 99153; 99285; A9270; C1769; C1887; C1894; C8929; C9113; J1170; J1644; J1650; J1940; J2060; J2250; J2270; J2405; J2765; J3010; J3490; J7030; Q9956; Q9967

== ENCOUNTER 2022-03-25 18:08 | Emergency (ER) | payer MEDICARE, OTHER, SELFPAY ==
[2022-03-25 18:22] VITALS: BP 124/74; PULSE 83; RESP 18; TEMP 37.2; O2SAT 96; BMI 26.6
--- NOTE | 2022-03-25 18:38 | W.ED.GIBLEED ---
HPI - GI Bleed General: Chief complaint: GI Bleed Stated complaint: Dc from ICU, Brenden sent for bld work Time Seen by Provider: 03/25/22 18:31 Source: patient Mode of arrival: ambulatory Limitations: no limitations History of Present Illness: This 77-year-old female who was discharged from ICU around noon today, presents to the ER stating that when she got home and had a bowel movement, she noticed there was blood in the stool. She denies abdominal pain or rectal pain. She does have a history of hemorrhoids but has not bled in a while. She denies fever, shortness of breath, chest pain or any other pertinent symptoms. She called her care provider who advised her to come to the ER for evaluation. Review of Systems General: Reports: 10 or more systems reviewed and unremarkable except in HPI and below GI: Reports: hematochezia PFSH ED PFSH: Medical History (Updated 03/25/22 @ 20:01 by Evon Willams MD) Diverticulosis large intestine w/o perforation or abscess w/bleeding History of colon polyps Kidney stone Surgical History (Updated 03/23/22 @ 07:31 by Abdoul Tapia MD) History of colonoscopy History of hemorrhoidectomy History of kidney removal Hx laparoscopic cholecystectomy Hx of hysterectomy Previous back surgery Family History Father , AT AGE 66 Heart attack Mother , AT AGE 93 Stroke Social History Smoking and tobacco status: never smoked Second hand smoke exposure: No Alcohol intake: never Caregiver/support person: Yes Lives independently: Yes Household members: spouse Marital status: service: No Current occupational status: retired History of recent travel: Yes Details: [place] LAST WEEKEND Out of state: Yes Current gender identity: Female Special magdalena needs: No Physical Exam Const: COMMON NORMALS: no acute distress, patient oriented x3, no limitations and alert HENMT: COMMON NORMALS: normocephalic HEAD & SCALP: normocephalic Eye: COMMON NORMALS: EOMs intact bilaterally Neck/C-Spine: COMMON NORMALS: full ROM and supple Chest: COMMONS NORMALS: normal inspection of the chest Resp: COMMON NORMALS: normal respiratory effort, No retractions, No use of accessory muscles and clear to auscultation bilaterally AUSCULTATION: clear to auscultation bilaterally Cardio: COMMON NORMALS: regular rate, regular rhythm and No murmurs present (Cardio) RATE: regular rate RHYTHM: regular rhythm GI: COMMON NORMALS: Normal to inspection, nondistended, normoactive bowel sounds present and non-tender OTHER: Rectal exam reveals external hemorrhoids that are not thrombosed. Examining finger stained with slightly blood stained mucus. There does not seem to be active bleeding at this time. : COMMON NORMALS: Yes no CVA tenderness BLADDER/KIDNEY EXAM: Yes no CVA tenderness Back/Pelvis: COMMON NORMALS: no CVA tenderness and no thoracic nor lumbar tenderness Extremity: GENERAL: Yes normal exam except as noted Neuro: COMMON NORMALS: patient oriented x3 and no focal motor deficits SENSORIUM/ORIENTATION: Yes alert Psych: COMMON NORMALS: mental status grossly normal and cooperative Course Vital Signs: Vital signs: Vital Signs Temperature 98.9 F 03/25/22 18:22 Pulse Rate 91 03/25/22 20:15 Respiratory Rate 16 03/25/22 20:15 Blood Pressure 108/62 03/25/22 20:15 Pulse Oximetry 91 03/25/22 20:15 Oxygen Delivery Me thod 03/25/22 18:22 MDM - GI Bleed Medical Decision Making Medical decision making: History as above. Patient is clinically stable. Besides the external hemorrhoids, clinical exam is unremarkable. Her hemoglobin is normal and vital signs are normal too. Case discussed with Dr. Hernandez, surgeon on-call. He notes that no emergent intervention is needed. Patient should be advised on sitz bath, avoiding constipation and follow-up with her primary care provider. She was given a prescription for Anusol HC suppositories and advised to return with new or worsening symptoms. Patient verbalized understanding and agrees with the plan. Lab Data 03/25/22 18:56 03/25/22 18:56 Laboratory Results WBC 7.1 10^3/uL (4.0-10.0) 03/25/22 18:56 RBC 4.53 10^6/uL (4.1-5.3) 03/25/22 18:56 Hgb 13.8 g/dL (11.5-15.3) 03/25/22 18:56 Hct 43.5 % (37.0-47.0) 03/25/22 18:56 MCV 96.0 fl (81-99) 03/25/22 18:56 MCH 30.5 pg (28.0-34.0) 03/25/22 18:56 MCHC 31.7 g/dL (30.0-36.0) 03/25/22 18:56 RDW 12.4 % (12.1-15.1) 03/25/22 18:56 Plt Count 253 10^3/cmm (130-400) 03/25/22 18:56 MPV 10.7 fL (7.4-10.4) H 03/25/22 18:56 Neut % (Auto) 55.9 % 03/25/22 18:56 Lymph % (Auto) 24.2 % 03/25/22 18:56 Blount % (Auto) 13.7 % 03/25/22 18:56 Eos % (Auto) 4.8 % 03/25/22 18:56 Baso % (Auto) 0.7 % 03/25/22 18:56 Neut # (Auto) 3.95 10^3/uL (1.8-7.7) 03/25/22 18:56 Lymph # (Auto) 1.7 10^3/uL (0.8-4.8) 03/25/22 18:56 Blount # (Auto) 1.0 10^3/uL (0.2-0.9) H 03/25/22 18:56 Eos # (Auto) 0.3 10^3/uL (0.0-0.8) 03/25/22 18:56 Baso # (Auto) 0.1 10^3/uL (0.0-0.1) 03/25/22 18:56 Nucleated RBC % (auto) 0 % 03/25/22 18:56 Nucleated RBCs # 0.0 /100WBC 03/25/22 18:56 PT 13.50 SECONDS (12.1-14.9) 03/25/22 18:56 INR 1.00 (0.8-1.2) 03/25/22 18:56 Sodium 141 mmol/L (136-145) 03/25/22 18:56 Potassium 3.8 mmol/L (3.5-5.1) 03/25/22 18:56 Chloride 104 mmol/L (98-107) 03/25/22 18:56 Carbon Dioxide 25 mmol/L (22-29) 03/25/22 18:56 Anion Gap 15.8 (5-19) 03/25/22 18:56 BUN 23 mg/dL (8-23) 03/25/22 18:56 Creatinine 1.2 mg/dL (0.5-0.9) H 03/25/22 18:56 GFR Calculation Not Reportable 03/25/22 18:56 Glucose 98 mg/dL (65-115) 03/25/22 18:56 Calculated Osmolality 296 mOsm/kg (285-295) H 03/25/22 18:56 Calcium 9.6 mg/dL (8.5-10.5) 03/25/22 18:56 Total Bilirubin 0.7 mg/dL (0.15-1.2) 03/25/22 18:56 AST 55 U/L (0-32) H 03/25/22 18:56 ALT 57 U/L (0-33) H 03/25/22 18:56 Alkaline Phosphatase 135 U/L (35-105) H 03/25/22 18:56 Total Protein 6.9 g/dL (6.6-8.7) D 03/25/22 18:56 Albumin 3.9 g/dL (3.5-5.2) 03/25/22 18:56 Globulin 3.0 g/dL (1.3-4.6) 03/25/22 18:56 Discharge Plan Discharge Patient Disposition: Home Clinical Impression: Bleeding external hemorrhoids Condition: Stable Prescriptions: New Anusol-HC 25 mg suppository 25 mg OH BID PRN (Reason: hemorrhoids) Qty: 12 0RF No Action omeprazole 20 mg capsule,delayed release(DR/EC) 20 mg PO DAILY Qty: 30 4RF valsartan 160 mg tablet 160 mg PO DAILY Qty: 30 3RF Hold Instructions: Resume on 03/28/22. dicyclomine 20 mg tablet 20 mg PO TID Qty: 90 1RF clonazepam 1 mg tablet 1 mg PO DAILY 30 Days Qty: 30 3RF aspirin 650 mg tablet,delayed release (DR/EC) 650 mg PO QID 14 Days Qty: 56 0RF colchicine 0.6 mg Tablet 0.6 mg PO BID 30 Days Qty: 60 3RF Discharge Orders: Discharge ED (Routine); Ordered 03/25/22 Ordered By: Evon Willams Referrals: Lennie Lew MD [Primary Care Provider] - Patient Instructions: Opioid Safety, Pain Management Activity Restrictions/Additional Instructions: Do sitz bath daily. Use the prescribed suppositories as directed. Avoid constipation. Take laxatives like [id number] MiraLAX to keep your stool soft. Follow-up with your primary care physician as needed. Return if bleeding worsens or you develop any new concerning symptoms. Coding Level of Care Code ED Bolt Sorter for Yaz Pardo
[2022-03-25 19:03] LABS: Basophils # 0.1 10^3/uL (0.0-0.1); Basophils % 0.7 %; Eosinophils # 0.3 10^3/uL (0.0-0.8); Eosinophils % 4.8 %; Hematocrit 43.5 % (37.0-47.0); Hemoglobin 13.8 g/dL (11.5-15.3); Lymphocytes # 1.7 10^3/uL (0.8-4.8); Lymphocytes % 24.2 %; Mean Corpuscular HGB Conc 31.7 g/dL (30.0-36.0); Mean Corpuscular Hemoglobin 30.5 pg (28.0-34.0); Mean Platelet Volume 10.7 fL (7.4-10.4); Monocytes % 13.7 %; Neutrophils # 3.95 10^3/uL (1.8-7.7); Neutrophils % 55.9 %; Nucleated Red Blood Cells % 0 %; Platelet Count 253 10^3/cmm (130-400); Red Blood Count 4.53 10^6/uL (4.1-5.3); Red Cell Distribution Width 12.4 % (12.1-15.1); White Blood Count 7.1 10^3/uL (4.0-10.0)
[2022-03-25 19:06] VITALS: BP 132/64; PULSE 95; RESP 16; O2SAT 91
[2022-03-25 19:27] LABS: Alanine Aminotransferase 57 U/L (0-33); Albumin Level 3.9 g/dL (3.5-5.2); Alkaline Phosphatase 135 U/L (35-105); Anion Gap 15.8 (5-19); Aspartate Amino Transferase 55 U/L (0-32); Blood Urea Nitrogen 23 mg/dL (8-23); Calcium 9.6 mg/dL (8.5-10.5); Carbon Dioxide 25 mmol/L (22-29); Chloride 104 mmol/L (98-107); Glucose 98 mg/dL (65-115); Osmolality Calculated 296 mOsm/kg (285-295); Potassium 3.8 mmol/L (3.5-5.1); Sodium 141 mmol/L (136-145); Total Bilirubin 0.7 mg/dL (0.15-1.2); Total Protein 6.9 g/dL (6.6-8.7)
[2022-03-25 20:15] VITALS: BP 108/62; PULSE 91; RESP 16; O2SAT 91
== END 2022-03-25 20:16 | disposition home or self-care (01) ==
PROVIDERS: Emergency Provider Family Medicine; PCP Family Medicine
DX: K64.4 Residual hemorrhoidal skin tags (principal); Z79.82 Long term (current) use of aspirin
CPT/HCPCS: 80053; 85025; 85610; 99283

== ENCOUNTER → 2022-03-28 13:32 | Outpatient (BNVA) | payer MEDICARE, OTHER, SELFPAY | PROVIDERS: PCP Family Medicine; Visit Provider Internal Medicine | DX: N18.9 Chronic kidney disease, unspecified (principal) | CPT/HCPCS: 80048 ==

== ENCOUNTER → 2022-03-31 09:16 | Outpatient (BNVA) | payer MEDICARE, OTHER, SELFPAY | PROVIDERS: PCP Family Medicine; Visit Provider Internal Medicine | DX: I12.9 Hypertensive chronic kidney disease with stage 1 through stage 4 chronic kidney disease, or unspecified chronic kidney disease (principal); N18.9 Chronic kidney disease, unspecified; I31.9 Disease of pericardium, unspecified | CPT/HCPCS: 99214 ==

== ENCOUNTER → 2022-04-18 10:19 | Outpatient (BNVA) | payer MEDICARE, OTHER, SELFPAY | PROVIDERS: PCP Family Medicine; Visit Provider Nurse Practitioner Family | DX: R42 Dizziness and giddiness (principal); M25.50 Pain in unspecified joint; R19.7 Diarrhea, unspecified; E55.9 Vitamin D deficiency, unspecified; Z79.899 Other long term (current) drug therapy | CPT/HCPCS: 80053; 82306; 82607; 84443; 84550; 85025; 85651; 86038; 86140; 86200; 86431 ==

== ENCOUNTER 2022-05-15 09:02 | Outpatient (CLI) | payer MEDICARE, OTHER, SELFPAY ==
--- NOTE | 2022-05-15 09:45 | USCV_ITS ---
Carolyne Morales Age: 76 Gender: F : 1945 Exam Date: 05/15/2022 10:20 Ordering Phys: Ally Chris CARGO HANDLER Technologist: ERICK Exam Location: [facility] [place] Indication: Dizziness Risk Factors: Previous Vascular Surgery: Right Brachial BP: / Left Brachial BP: / Right Left Velocity (cm/s) Spectral Plaque Velocity (cm/s) Spectral Plaque Syst/Diast Broadening Syst/Diast Broadening 67.50/ 16.20 Prox CCA 64.10 / 14.50 59.80/ 17.10 Mid CCA 71.80 / 14.50 70.10/ 13.70 Distal CCA 78.60 / 17.10 53.10/ 17.50 Prox ICA 70.10 / 24.80 66.40/ 21.70 Mid ICA 71.80 / 26.50 88.80/ 24.10 Distal ICA 55.90 / 22.50 45.90 ECA 66.70 1.27 ICA/CCA 0.91 Antegrade Vertebral Antegrade 46.70/ 16.10 cm/s 31.60/ 10.50 cm/s Tri Subclavian Tri 85.90 144.5 0 CONCLUSIONS Right ICA stenosis <50%. Mild atheromatous plaque right carotid bulb/ICA. Left ICA stenosis <50%. Mild atheromatous plaque left carotid bulb/ICA. Normal antegrade Doppler flow noted in the right vertebral artery. Normal antegrade Doppler flow noted in the left vertebral artery. Sylvain Gomes MD (Electronically Signed) Final Date: 15 May 2022 14:48 S
== END 2022-05-15 09:03 | disposition home or self-care (01) ==
LOC: RAD 09:02
PROVIDERS: PCP Family Medicine; Visit Provider Nurse Practitioner Family
DX: R42 Dizziness and giddiness (principal); I65.23 Occlusion and stenosis of bilateral carotid arteries
CPT/HCPCS: 93880

== ENCOUNTER → 2022-06-28 10:33 | Outpatient (BNVA) | payer MEDICARE, OTHER, SELFPAY | PROVIDERS: PCP Family Medicine; Referring Provider Dermatology; Visit Provider Podiatrist Foot & Ankle Surgery | DX: M72.2 Plantar fascial fibromatosis (principal); M24.572 Contracture, left ankle | CPT/HCPCS: 73630; 99203 ==

== ENCOUNTER 2022-06-29 11:09 | Outpatient (CLI) | payer MEDICARE, OTHER, SELFPAY ==
--- NOTE | 2022-06-29 11:15 | USCV_ITS ---
Carolyne Morales Age: 76 Gender: F : 1945 Exam Date: 06/29/2022 11:37 Ordering Phys: Patrick Basurto M.D ([email or web address]) Technologist: Exam Location: [facility] [place] Indication: wall motion BP: 133 / 70 HR: 66 Rhythm: Sinus Technical Quality: Adequate MEASUREMENTS (Male / Female) Normal Values 2D ECHO LV Ejection Fraction MOD 2C 58.0 % LV Ejection Fraction 2C AL 57.1 % FINDINGS Left Ventricle Right Ventricle Right Atrium Left Atrium Mitral Valve Aortic Valve Tricuspid Valve Pulmonic Valve Pericardium Aorta IVC CONCLUSIONS This is a limited echocardiogram performed to assess LV systolic function. LV systolic function is normal with EF of 55 to 60%. No regional wall motion abnormalities are seen. Compared to prior echocardiogram from 03/23/2022, LV systolic function is significantly improved and is normal now Patrick Basurto MD (Electronically Signed) Final Date: 08 Jul 2022 13:46 S
[2022-06-29] MEDS: perflutren protein-a microsphr 0.22 mg/mL SDV 3 mL IV (11:29)
== END 2022-06-29 11:10 | disposition home or self-care (01) ==
LOC: RAD 11:13
PROVIDERS: PCP Family Medicine; Visit Provider Internal Medicine
DX: R06.02 Shortness of breath (principal)
CPT/HCPCS: 99214; C8924; Q9956

== ENCOUNTER → 2022-07-28 08:51 | Outpatient (BNVA) | payer MEDICARE, OTHER, SELFPAY | PROVIDERS: PCP Family Medicine; Visit Provider Internal Medicine | DX: I12.9 Hypertensive chronic kidney disease with stage 1 through stage 4 chronic kidney disease, or unspecified chronic kidney disease (principal); N18.9 Chronic kidney disease, unspecified; I31.9 Disease of pericardium, unspecified | CPT/HCPCS: 99214 ==

== ENCOUNTER 2022-12-26 10:59 | Outpatient (CLI) | payer MEDICARE, OTHER, SELFPAY ==
--- NOTE | 2022-12-26 11:12 | MM_ITS ---
WS: [id number] BILATERAL 3D TOMOSYNTHESIS DIGITAL SCREENING MAMMOGRAPHY WITH CAD CLINICAL INFORMATION: SCREENING HISTORY: Screening mammogram. No current complaints. COMPARISON: 2021 TECHNIQUE: Bilateral CC and MLO views. FINDINGS: Retropectoral breast implants appear intact. Capsular calcifications. Scattered fibroglandular densities bilaterally. No suspicious focal mass, asymmetry, calcifications, or architectural distortion. No evidence of malignancy. Punctate and lucent centered calcifications. Vascular calcification. IMPRESSION: MM/[place] [id number] BI-RADS: 2-Benign FOLLOW UP: 1 Year Follow-up Recommend return to annual screening mammography.
== END 2022-12-26 11:00 | disposition home or self-care (01) ==
LOC: RAD 10:59
PROVIDERS: PCP Family Medicine; Visit Provider Family Medicine
DX: Z12.31 Encounter for screening mammogram for malignant neoplasm of breast (principal)
CPT/HCPCS: 77063; 77067

== ENCOUNTER 2023-04-25 12:50 | Emergency (ER) | payer MEDICARE, OTHER, SELFPAY ==
[2023-04-25 12:54] VITALS: BP 198/84; PULSE 72; RESP 16; TEMP 36.7; O2SAT 98
--- NOTE | 2023-04-25 12:57 | XR_ITS ---
WS: [id number] Portable AP upright chest, 04/25/2023 Clinical Data: bp Comparison: Portable chest, 03/22/2022 Findings: No nodules, masses or effusions are seen. The heart is slightly enlarged. There is minimal patchy opacity in the retrocardiac region which may represent atelectasis or minimal pneumonia. The pulmonary vascularity is not increased. No pneumothorax is seen. The aortic arch shows mild tortuosi ty. Impression: 1. Cardiomegaly and atherosclerosis. 2. Minimal left lower lobe patchy opacity which may represent atelectasis or less likely pneumonia.
--- NOTE | 2023-04-25 12:57 | ECG_ITS ---
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 Measurements Intervals [place] Rate: 65 P: 40 AK: 213 QRS: -42 QRSD: 102 T: 20 QT: 407 QTc: 424 Interpretive Statements SINUS RHYTHM WITH FIRST DEGREE AV BLOCK POSSIBLE LEFT ATRIAL ENLARGEMENT [-0.1mV P-WAVE IN V1/V2] LEFT AXIS DEVIATION [QRS AXIS < -30] POSSIBLE ANTERIOR MYOCARDIAL INFARCTION , OF INDETERMINATE AGE [30 ms Q WAVE IN V3/V4, OR R < 0.2 mV IN V4] Compared to ECG 03/23/2022 08:25:30 First degree AV block now present Left-axis deviation now present Myocardial infarct finding now present Sinus arrhythmia no longer present Left anterior fascicular block no longer present T-wave abnormality no longer present Electronically Signed On 04-25-2023 14:33:17 INDIRECT FIRE INFANTRYMAN by Denis Rahman M.D. [id number]
--- NOTE | 2023-04-25 14:02 | CT_ITS ---
WS: [id number] CT HEAD TECHNIQUE: Noncontrast CT of the head obtained from the skullbase to the vertex. CLINICAL INFORMATION: salazar COMPARISON: None. DLP: 1065.[address] scans at [facility] use at least one of these dose optimization techniques: automated e xposure control; mA and/or kV adjustment per patient size (includes targeted exams where dose is matc hed to clinical indication); or iterative reconstruction. FINDINGS: No evidence of intracranial hemorrhage or mass effect. Ventricular system and basal cisterns are tucker nt. Mild small vessel changes with moderate parenchymal volume loss. No extra-axial fluid collections . No evidence of mass or mass effect. Normal calvo-white differentiation. Chronic inspissated secretions compatible with sinusitis in the sphenoid sinus with chronic bony edwin deling. Chronic expansion of the RIGHT sphenoid sinus ostia. Mastoid air cells are well aerated. Mild ly coastal thickening in the ethmoid air cells. IMPRESSION: 1. No evidence of intracranial hemorrhage or mass effect. 2. Mild small vessel changes. Minimal parenchymal volume loss. 3. Inspissated secretions in the sphenoid sinus with bony remodeling and chronic expansion of the RI GHT sphenoid sinus ostia compatible with chronic sinusitis. 4. No acute intracranial findings.
--- NOTE | 2023-04-25 14:05 | ED_ITS ---
HPI - Dizziness 2 General: Chief Complaint: Dizziness Stated Complaint: elavated bp, dizzy, weak Time Seen by Provider: 04/25/23 13:47 Source: patient Mode of arrival: ambulatory Limitations: no limitations History of Present Illness: HPI Narrative: 77-year-old female states when she woke up this morning at 930 and was doing her states she started to feel lightheaded and felt like she may pass out. States she had a mild headache as well as states that both of since resolved but she still has a slight fullness feeling in her head she denies ever having any chest pain she said she is very hypertensive at home and is hypertensive here no known history of high blood pressure is not on any blood pressure meds. She denies any slurred speech or one-sided weakness denies the room spinning. Associated symptoms: Reports headache(s); Denies chest pain, chills, nausea or vomiting Review of Systems 2 Const: Denies: fever(s), chills, body aches or change in appetite Eyes: Denies: blurry vision ENMT: Denies: throat pain or dental pain Card: Reports: pre-syncope; Denies: chest pain Resp: Denies: dyspnea GI: Denies: abdominal pain, nausea, vomiting or diarrhea Musc: Denies: neck pain or back pain Skin/Breast: Denies: rash Neuro: Reports: headache(s) PFS ED 2 PFSH: Medical History TOR (acute kidney injury) Myopericarditis Troponin level elevated Hypomagnesemia Non-ST elevation OH (NSTEMI) Diverticulosis large intestine w/o perforation or abscess w/bleeding History of colon polyps Essential hypertension Kidney stone Surgical History History of colonoscopy History of hemorrhoidectomy Hx laparoscopic cholecystectomy History of kidney removal Hx of hysterectomy Previous back surgery Family History Father , AT AGE 66 Heart attack Mother , AT AGE 93 Stroke Social History Smoking and tobacco/nicotine status: never used tobacco/nicotine Second hand smoke exposure: No Alcohol intake: never Substance/Drug Use: never Caregiver/support person: Yes Lives independently: Yes Household members: spouse Marital status: service: No Current occupational status: retired Current gender identity: Female Special magdalena needs: No Physical Exam 2 Const: COMMON NORMALS: no acute distress, patient oriented x3 and healthy appearing HENMT: COMMON NORMALS: normocephalic and atraumatic HEAD & SCALP: n ormocephalic and atraumatic Eye: COMMON NORMALS: Equal, round and reactive pupils present and EOMs intact bilaterally PUPIL: Yes Equal, round and reactive pupils present Neck/C-Spine: COMMON NORMALS: full ROM and supple Chest: COMMONS NORMALS: normal inspection of the chest and normal palpation of entire chest wall Resp: COMMON NORMALS: normal respiratory effort, No retractions, No use of accessory muscles and clear to auscultation bilaterally AUSCULTATION: clear to auscultation bilaterally Cardio: COMMON NORMALS: regular rate, regular rhythm and No murmurs present (Cardio) RATE: regular rate RHYTHM: regular rhythm GI: COMMON NORMALS: Normal to inspection, nondistended, normoactive bowel sounds present, Soft to palpation, non-tender and no masses PALPATION: Yes Soft to palpation Extremity: COMMON NORMALS: normal to inspection and full ROM Neuro: COMMON NORMALS: patient oriented x3, moves all extremities and no focal motor deficits Psych: COMMON NORMALS: mental status grossly normal, Normal thought process present and cooperative THOUGHT PROCESS: Normal thought process present Skin: COMMON NORMALS: no rashes or lesions noted and no wounds GENERAL SKIN EXAM: no rashes or lesions noted Course 2 Vital Signs: Vital signs: Vital Signs Temperature 98.0 F 04/25/23 12:54 Pulse Rate 74 04/25/23 14:48 Respiratory Rate 16 04/25/23 12:54 Blood Pressure 163/71 04/25/23 14:48 Pulse Oximetry 97 04/25/23 14:48 Oxygen Delivery Me thod Room Air 04/25/23 14:48 MDM - Dizziness Medical Decision Making Patient presents here with some lightheadedness she has no headache here she is able ambulate the halls without any difficulty no vertigo her head CT blood work is normal blood pressure has improved we will start her on Norvasc she is follow-up with her PCP in 2 to 4 days she was return if worsening. She has no focal deficits here no signs of a stroke. Medical Records I reviewed the patient's medical records. Lab Data I reviewed the patient's lab results. 04/25/23 14:08 04/25/23 14:08 Laboratory Results WBC 7.08 10^3/uL (3.29-11.43) 04/25/23 14:08 RBC 4.44 10^6/uL (3.85-5.65) 04/25/23 14:08 Hgb 13.80 g/dL (11.27-16.99) 04/25/23 14:08 Hct 42.9 % (36-47) 04/25/23 14:08 MCV 96.6 fl (85-98) 04/25/23 14:08 MCH 31.1 pg (27-33) 04/25/23 14:08 MCHC 32.2 g/dL (30-55) 04/25/23 14:08 RDW 12.2 % (12.1-15.1) 04/25/23 14:08 Plt Count 236 10^3/cmm (157-399) 04/25/23 14:08 MPV 10.1 fL (7.4-10.4) 04/25/23 14:08 Neut % (Auto) 67.9 % 04/25/23 14:08 Lymph % (Auto) 17.9 % 04/25/23 14:08 Josephine % (Auto) 8.6 % 04/25/23 14:08 Eos % (Auto) 4.5 % 04/25/23 14:08 Baso % (Auto) 0.8 % 04/25/23 14:08 Neut # (Auto) 4.80 10^3/uL (1.8-7.7) 04/25/23 14:08 Lymph # (Auto) 1.3 10^3/uL (0.8-4.8) 04/25/23 14:08 Josephine # (Auto) 0.6 10^3/uL (0.2-0.9) 04/25/23 14:08 Eos # (Auto) 0.3 10^3/uL (0.0-0.8) 04/25/23 14:08 Baso # (Auto) 0.1 10^3/uL (0.0-0.1) 04/25/23 14:08 Nucleated RBC % (auto) 0 % 04/25/23 14:08 Nucleated RBCs # 0.0 /100WBC 04/25/23 14:08 PT 13.70 SECONDS (12.1-14.9) 04/25/23 14:08 INR 1.02 (0.8-1.2) 04/25/23 14:08 Sodium 138 mmol/L (136-145) 04/25/23 14:08 Potassium 4.2 mmol/L (3.5-5.1) 04/25/23 14:08 Chloride 104 mmol/L (98-107) 04/25/23 14:08 Carbon Dioxide 22 mmol/L (22-29) 04/25/23 14:08 Anion Gap 16.2 (5-19) 04/25/23 14:08 BUN 16 mg/dL (8-23) 04/25/23 14:08 Creatinine 0.9 mg/dL (0.5-0.9) 04/25/23 14:08 GFR Calculation Not Reportable 04/25/23 14:08 Glucose 83 mg/dL (65-115) 04/25/23 14:08 Calculated Osmolality 286 mOsm/kg (285-295) 04/25/23 14:08 Calcium 9.0 mg/dL (8.5-10.5) 04/25/23 14:08 Total Bilirubin 1.0 mg/dL (0.15-1.2) 04/25/23 14:08 AST 19 U/L (0-32) 04/25/23 14:08 ALT 13 U/L (0-33) 04/25/23 14:08 Alkaline Phosphatase 94 U/L (35-105) 04/25/23 14:08 Troponin T Baseline 8 ng/L (0-10) 04/25/23 14:08 Total Protein 6.9 g/dL (6.6-8.7) 04/25/23 14:08 Albumin 4.2 g/dL (3.5-5.2) 04/25/23 14:08 Globulin 2.7 g/dL (1.3-4.6) 04/25/23 14:08 All radiology interpretation(s) finalized by discharge Discharge Plan Discharge Patient Disposition: Home Clinical Impression: Hypertension, Light headed Condition: Stable Prescriptions: New Norvasc 5 mg tablet 5 mg PO DAILY Qty: 30 0RF No Action metoprolol tartrate 25 mg tablet 12.5 mg PO BID Qty: 90 3RF clonazepam 1 mg tablet 1 mg PO DAILY 30 Days Qty: 30 3RF Discharge Orders: Discharge ED (Routine); Ordered 04/25/23 Ordered By: Roselia Gasca Referrals: Lennie Lew MD [Primary Care Provider] - 4-7 days Discharge Diet: Advance as tolerated Discharge Activity: Resume usual activity Patient Instructions: Hypertension (ED), Lightheadedness (ED) Coding Level of Care Code ED Lead Cargoman for Yaz Pardo
[2023-04-25] MEDS: ondansetron 2 mg/ML SDV 2 mL 4 MG IVP (14:11)
[2023-04-25] MEDS: hyDRALAzine 20 mg/mL INJ 1 mL 10 MG IVP (14:11)
[2023-04-25 14:15] VITALS: BP 196/91; PULSE 82; O2SAT 96
[2023-04-25 14:20] LABS: Basophils # 0.1 10^3/uL (0.0-0.1); Basophils % 0.8 %; Eosinophils # 0.3 10^3/uL (0.0-0.8); Eosinophils % 4.5 %; Hematocrit 42.9 % (36-47); Lymphocytes # 1.3 10^3/uL (0.8-4.8); Lymphocytes % 17.9 %; Mean Corpuscular HGB Conc 32.2 g/dL (30-55); Mean Corpuscular Hemoglobin 31.1 pg (27-33); Mean Corpuscular Volume 96.6 fl (85-98); Mean Platelet Volume 10.1 fL (7.4-10.4); Monocytes # 0.6 10^3/uL (0.2-0.9); Monocytes % 8.6 %; Neutrophils % 67.9 %; Nucleated Red Blood Cells % 0 %; Platelet Count 236 10^3/cmm (157-399); Red Blood Count 4.44 10^6/uL (3.85-5.65); Red Cell Distribution Width 12.2 % (12.1-15.1); White Blood Count 7.08 10^3/uL (3.29-11.43)
--- NOTE | 2023-04-25 14:27 | PC.PHAR ---
Pt states she takes no medications other than Clonazepam 1mg once daily and Metoprolol 25mg 1/2 tablet twice daily. Removed all other meds from her chart. 04/25/23
[2023-04-25 14:34] VITALS: BP 151/87; PULSE 72; O2SAT 94
[2023-04-25 14:34] LABS: INR 1.02 (0.8-1.2)
[2023-04-25 14:40] LABS: Alanine Aminotransferase 13 U/L (0-33); Albumin Level 4.2 g/dL (3.5-5.2); Alkaline Phosphatase 94 U/L (35-105); Blood Urea Nitrogen 16 mg/dL (8-23); Carbon Dioxide 22 mmol/L (22-29); Chloride 104 mmol/L (98-107); Creatinine Clr Calc Pharmacy 50.0128; Globulin 2.7 g/dL (1.3-4.6); Glucose 83 mg/dL (65-115); Osmolality Calculated 286 mOsm/kg (285-295); Sodium 138 mmol/L (136-145); Total Protein 6.9 g/dL (6.6-8.7)
[2023-04-25 14:43] LABS: Troponin(5th) Baseline 8 ng/L (0-10)
[2023-04-25 14:48] VITALS: BP 163/71; PULSE 74; O2SAT 97
[2023-04-25 14:58] LABS: Anion Gap 16.2 (5-19); Aspartate Amino Transferase 19 U/L (0-32); Potassium 4.2 mmol/L (3.5-5.1)
--- NOTE | 2023-04-25 15:09 | ECG_ITS ---
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 Measurements Intervals [place] Rate: 76 P: 59 CO: 205 QRS: -37 QRSD: 106 T: 49 QT: 400 QTc: 451 Interpretive Statements SINUS RHYTHM POSSIBLE LEFT ATRIAL ENLARGEMENT [-0.1mV P-WAVE IN V1/V2] LEFT AXIS DEVIATION [QRS AXIS < -30] PATTERN CONSISTENT WITH PULMONARY DISEASE Compared to ECG 04/25/2023 12:58:55 First degree AV block no longer present Myocardial infarct finding no longer present Electronically Signed On 04-26-2023 14:52:31 CREPE SOLE WIRE BRUSHER by Patrick Basurto M.D. [id number]
== END 2023-04-25 15:17 | disposition home or self-care (01) ==
PROVIDERS: Emergency Provider Emergency Medicine; PCP Family Medicine
DX: R42 Dizziness and giddiness (principal); I10 Essential (primary) hypertension; I25.2 Old myocardial infarction
CPT/HCPCS: 70450; 71045; 80053; 84484; 85025; 85610; 93005; 96374; 96375; 99285; J0360; J2405

== ENCOUNTER → 2023-07-30 13:21 | Outpatient (BNVA) | payer MEDICARE, OTHER, SELFPAY | PROVIDERS: PCP Family Medicine; Visit Provider Internal Medicine | DX: N18.9 Chronic kidney disease, unspecified (principal); I31.9 Disease of pericardium, unspecified | CPT/HCPCS: 99214 ==

== ENCOUNTER 2023-08-16 14:40 | Emergency (ER) | payer MEDICARE, OTHER, SELFPAY ==
[2023-08-16 14:45] VITALS: BP 120/66; PULSE 89; RESP 15; TEMP 36.5; O2SAT 93; BMI 26.2
--- NOTE | 2023-08-16 15:35 | ED_ITS ---
HPI - Extremity Problem 2 General: Chief complaint: Extremity Injury, Lower Stated complaint: doctor referral, left leg pain Time Seen by Provider: 08/16/23 15:31 History of Present Illness: 78-year-old female with a history of hyp ertension and anxiety who presents to the emergency room with left lower leg pain. Says she is having pain from her thigh down into the front of her uribe. She says she went saw her primary who sent her to the emergency room because they were concerned about an DVT. She has no pain in her posterior leg. No redness or swelling. She takes amlodipine, metoprolol and hydrochlorothiazide for her blood pressure. No chest pain. No shortness of breath. No altered mental status. No abdominal pain. No nausea vomiting. Review of Systems 2 Narrative: Constitutional symptoms: Negative except as documented in HPI. Skin symptoms: Negative except as documented in HPI. Eye symptoms: Negative except as documented in HPI. ENMT symptoms: Negative except as documented in HPI. Respiratory symptoms: Negative except as documented in HPI. Cardiovascular symptoms: Negative except as documented in HPI. Gastrointestinal symptoms: Negative except as documented in HPI. Genitourinary symptoms: Negative except as documented in HPI. Musculoskeletal symptoms: Negative except as documented in HPI. Neurologic symptoms: Negative except as documented in HPI. Psychiatric symptoms: Negative except as documented in HPI. Endocrine symptoms: Negative except as documented in HPI. PFSH ED 2 PFSH: Medical History Enrolled in chronic care management Essential hypertension TOR (acute kidney injury) Myopericarditis Troponin level elevated Hypomagnesemia Non-ST elevation MO (NSTEMI) Diverticulosis large intestine w/o perforation or abscess w/bleeding History of colon polyps Kidney stone Surgical History History of colonoscopy History of hemorrhoidectomy Hx laparoscopic cholecystectomy History of kidney removal Hx of hysterectomy Previous back surgery Family History Father , AT AGE 66 Heart attack Mother , AT AGE 93 Stroke Social History Smoking and tobacco/nicotine status: never used tobacco/nicotine Second hand smoke exposure: No Alcohol intake: never Substance/Drug Use: never Caregiver/support person: Yes Lives independently: Yes Household members: spouse Marital status: service: No Current occupational status: retired Current gender identity: Female Special magdalena needs: No Physical Exam 2 Narrative: EXAM NARRATIVE: General: Alert, no acute distress. Skin: Warm, dry. Head: Normocephalic, atraumatic. Neck: Supple, trachea midline. Eye: Extraocular movements are intact. Ears, nose, mouth and throat: mucosa moist. Cardiovascular: Regular, Normal peripheral perfusion. Respiratory: Lungs are clear to auscultation, respirations are non-labored, breath sounds are equal, Symmetrical chest wall expansion. Gastrointestinal: Soft, Nontender, Non distended Musculoskeletal: Normal ROM, no deformity. Neurological: Alert and oriented, No focal neurological deficit observed. Psychiatric: Cooperative, appropriate mood & affect. Course 2 Vital Signs: Vital signs: Vital Signs Temperature 97.7 F 08/16/23 14:45 Pulse Rate 85 08/16/23 16:30 Respiratory Rate 15 08/16/23 16:10 Blood Pressure 122/64 08/16/23 16:30 Pulse Oximetry 95 08/16/23 16:30 Oxygen Delivery Me thod Room Air 08/16/23 16:30 MDM - Extremity (Nontraumatic) Medical Decision Making Medical decision making: Differential diagnosis including but not limited to and based on the above HPI, review of systems and physical exam: I have a fairly low suspicion for DVT given the location of her pain and the lack of swelling but will do an ultrasound to rule out DVT. With her having leg pain possible cramping and order some electrolytes and renal function. Rule out dehydration or electrolyte abnormalities that might cause pain. Orders placed to evaluate differential diagnosis based on the above differential, HPI and physical exam Lab Review: Laboratory results were reviewed and interpreted by myself the emergency room physician. Patient has a elevation in her BUN and creatinine at 30 and 1.5 which is up from her usual of around 1 on her creatinine. Ultrasound lower extremity is negative for DVT. This was reviewed and interpreted by myself the emergency room physician. I also reviewed the radiology report. I reviewed the patient's medical record. Reexamination: Patient remained stable. No increased work of breathing. No altered mental status. No focal motor deficits. Assessment and plan: Dehydration Leg pain - Discharged home - Discussed findings and plan with patient. Answered any questions. - All laboratory values were reviewed and interpreted personally by myself, the ER physician - All imaging was reviewed and interpreted personally by myself, the ER physician. - Evaluation and treatment of this problem were appropriate in the emergency setting Lab Data 08/16/23 15:42 08/16/23 15:42 Laboratory Results WBC 7.90 10^3/uL (3.29-11.43) 08/16/23 15:42 RBC 3.97 10^6/uL (3.85-5.65) 08/16/23 15:42 Hgb 12.40 g/dL (11.27-16.99) 08/16/23 15:42 Hct 38.5 % (36-47) 08/16/23 15:42 MCV 97.0 fl (85-98) 08/16/23 15:42 MCH 31.2 pg (27-33) 08/16/23 15:42 MCHC 32.2 g/dL (30-55) 08/16/23 15:42 RDW 12.3 % (12.1-15.1) 08/16/23 15:42 Plt Count 227 10^3/cmm (157-399) 08/16/23 15:42 MPV 10.2 fL (7.4-10.4) 08/16/23 15:42 Neut % (Auto) 65.4 % 08/16/23 15:42 Lymph % (Auto) 15.8 % 08/16/23 15:42 Chester % (Auto) 12.9 % 08/16/23 15:42 Eos % (Auto) 4.6 % 08/16/23 15:42 Baso % (Auto) 0.9 % 08/16/23 15:42 Neut # (Auto) 5.17 10^3/uL (1.8-7.7) 08/16/23 15:42 Lymph # (Auto) 1.3 10^3/uL (0.8-4.8) 08/16/23 15:42 Chester # (Auto) 1.0 10^3/uL (0.2-0.9) H 08/16/23 15:42 Eos # (Auto) 0.4 10^3/uL (0.0-0.8) 08/16/23 15:42 Baso # (Auto) 0.1 10^3/uL (0.0-0.1) 08/16/23 15:42 Nucleated RBC % (auto) 0 % 08/16/23 15:42 Nucleated RBCs # 0.0 /100WBC 08/16/23 15:42 PT 13.70 SECONDS (12.1-14.9) 08/16/23 15:42 INR 1.01 (0.8-1.2) 08/16/23 15:42 APTT 29.0 SECONDS (23.9-36.7) 08/16/23 15:42 Sodium 137 mmol/L (136-145) 08/16/23 15:42 Potassium 4.2 mmol/L (3.5-5.1) 08/16/23 15:42 Chloride 103 mmol/L (98-107) 08/16/23 15:42 Carbon Dioxide 23 mmol/L (22-29) 08/16/23 15:42 Anion Gap 15.2 (5-19) 08/16/23 15:42 BUN 30 mg/dL (8-23) H 08/16/23 15:42 Creatinine 1.5 mg/dL (0.5-0.9) H 08/16/23 15:42 GFR Calculation Not Reportable 08/16/23 15:42 Glucose 115 mg/dL (65-115) 08/16/23 15:42 Calculated Osmolality 291 mOsm/kg (285-295) 08/16/23 15:42 Calcium 9.2 mg/dL (8.5-10.5) 08/16/23 15:42 Magnesium 1.9 mg/dL (1.7-2.3) 08/16/23 15:42 Total Bilirubin 1.2 mg/dL (0.15-1.2) 08/16/23 15:42 AST 15 U/L (0-32) 08/16/23 15:42 ALT 11 U/L (0-33) 08/16/23 15:42 Alkaline Phosphatase 94 U/L (35-105) 08/16/23 15:42 C-Reactive Protein 29.2 mg/L (0.0-4.9) H 08/16/23 15:42 Total Protein 7.3 g/dL (6.6-8.7) 08/16/23 15:42 Albumin 4.0 g/dL (3.5-5.2) 08/16/23 15:42 Globulin 3.3 g/dL (1.3-4.6) 08/16/23 15:42 All radiology interpretation(s) finalized by discharge Discharge Plan Discharge Patient Disposition: Home Clinical Impression: Leg pain, Dehydration Condition: Stable Prescriptions: No Action amlodipine 10 mg tablet 10 mg PO DAILY Qty: 30 3RF hydrochlorothiazide 25 mg tablet 25 mg PO QAM Qty: 30 1RF diphenoxylate-atropine [Lomotil] 2.5-0.025 mg tablet 1 tab PO Q8H PRN (Reason: diarrhea) Qty: 60 1RF metoprolol tartrate 25 mg tablet 12.5 mg PO BID Qty: 90 3RF clonazepam 1 mg tablet 1 mg PO DAILY 30 Days Qty: 30 3RF Discharge Orders: Discharge ED (Routine); Ordered 08/16/23 Ordered By: Jessica Mendez Referrals: Lennie Lew MD [Primary Care Provider] - 1-3 days Discharge Diet: Usual diet Discharge Activity: Increase activity as tolerated Patient Instructions: Dehydration (ED) Activity Restrictions/Additional Instructions: Thank you for choosing [facility] for your healthcare needs today. Please realize this is an emergency room and that we are providing you with a medical screening exam and this may not be complete and all inclusive of all the testing and or work up that you may need to determine your ailment or severity of your illness. You have been screened and evaluated and felt safe for discharge. Health conditions do change or evolve sometimes and as such it is important that you follow up with your Primary Doctor to be re checked, 3-5 days is a general good time frame for follow up. You are always welcome to return to the ED for re assessment if your symptoms are worsening or you have new concerns Coding Level of Care Code ED Storm Sash Maker for Yaz Pardo
--- NOTE | 2023-08-16 15:35 | USCV_ITS ---
Carolyne Morales Age: 78 Gender: F : 1945 Exam Date: 08/16/2023 15:45 Ordering Phys: Jessica Mendez MD Technologist: ERICK Exam Location: [facility] [place] Indication: LE PAIn HISTORY: Lower extremity pain. PROCEDURES: Venous duplex imaging was performed in only the left lower extremity. The following venous structures were evaluated: common femoral vein, profunda vein, proximal portion of the greater saphenous vein, superficial femoral vein, and the popliteal vein. In addition, the posterior tibial and peroneal trunk were evaluated. Serial compression, augmentation maneuvers, and spectral Doppler flow evaluation were performed. FINDINGS: No evidence of DVT seen in any vessel visualized at this time. CONCLUSIONS No evidence of left lower extremity DVT. Sylvain Gomes MD (Electronically Signed) Final Date: 16 August 2023 16:20 S
[2023-08-16 15:51] LABS: Basophils # 0.1 10^3/uL (0.0-0.1); Basophils % 0.9 %; Eosinophils # 0.4 10^3/uL (0.0-0.8); Eosinophils % 4.6 %; Hematocrit 38.5 % (36-47); Lymphocytes # 1.3 10^3/uL (0.8-4.8); Lymphocytes % 15.8 %; Mean Corpuscular HGB Conc 32.2 g/dL (30-55); Mean Corpuscular Hemoglobin 31.2 pg (27-33); Mean Platelet Volume 10.2 fL (7.4-10.4); Monocytes % 12.9 %; Neutrophils # 5.17 10^3/uL (1.8-7.7); Neutrophils % 65.4 %; Nucleated Red Blood Cells % 0 %; Platelet Count 227 10^3/cmm (157-399); Red Blood Count 3.97 10^6/uL (3.85-5.65); Red Cell Distribution Width 12.3 % (12.1-15.1)
[2023-08-16 16:08] LABS: INR 1.01 (0.8-1.2)
[2023-08-16 16:10] VITALS: BP 113/70; PULSE 88; RESP 15; O2SAT 96
[2023-08-16 16:12] LABS: Alanine Aminotransferase 11 U/L (0-33); Alkaline Phosphatase 94 U/L (35-105); Anion Gap 15.2 (5-19); Aspartate Amino Transferase 15 U/L (0-32); Blood Urea Nitrogen 30 mg/dL (8-23); C Reactive Protein 29.2 mg/L (0.0-4.9); Calcium 9.2 mg/dL (8.5-10.5); Carbon Dioxide 23 mmol/L (22-29); Chloride 103 mmol/L (98-107); Creatinine Clr Calc Pharmacy 29.6873; Globulin 3.3 g/dL (1.3-4.6); Glucose 115 mg/dL (65-115); Magnesium 1.9 mg/dL (1.7-2.3); Osmolality Calculated 291 mOsm/kg (285-295); Potassium 4.2 mmol/L (3.5-5.1); Sodium 137 mmol/L (136-145); Total Bilirubin 1.2 mg/dL (0.15-1.2); Total Protein 7.3 g/dL (6.6-8.7)
[2023-08-16 16:30] VITALS: BP 122/64; PULSE 85; O2SAT 95
[2023-08-16 17:00] VITALS: BP 134/68; PULSE 84; RESP 16; O2SAT 98
[2023-08-16] MEDS: sodium chloride 0.9% 1,000 ML 999 ML IV (17:08)
[2023-08-16 17:30] VITALS: BP 128/66; PULSE 86; RESP 15; O2SAT 98
[2023-08-16 18:01] VITALS: PULSE 89; O2SAT 98
== END 2023-08-16 18:04 | disposition home or self-care (01) ==
PROVIDERS: Emergency Provider Emergency Medicine; PCP Family Medicine
DX: M79.605 Pain in left leg (principal); E86.0 Dehydration; I10 Essential (primary) hypertension; I25.2 Old myocardial infarction
CPT/HCPCS: 36415; 80053; 83735; 85025; 85610; 85730; 86140; 93971; 96360; 99284; J7030

== ENCOUNTER → 2023-12-25 11:40 | Outpatient (BNVA) | payer MEDICARE, OTHER, SELFPAY | PROVIDERS: PCP Nurse Practitioner Family; Visit Provider Nurse Practitioner Family | DX: I10 Essential (primary) hypertension (principal) | CPT/HCPCS: 80053; 80061; 82607; 82728; 84443; 85025 ==

== ENCOUNTER 2024-01-09 12:40 | Outpatient (CLI) | payer MEDICARE, OTHER, SELFPAY ==
--- NOTE | 2024-01-09 13:00 | MM_ITS ---
WS: [id number] BILATERAL 3D TOMOSYNTHESIS DIGITAL SCREENING MAMMOGRAPHY WITH CAD CLINICAL INFORMATION: Z12.39 - Encounter for other screening for malignant neop... HISTORY: Screening mammogram. No current complaints. COMPARISON: 2021 TECHNIQUE: Bilateral CC and MLO views. FINDINGS: Stable bilateral breast implants with capsular calcifications. Scattered fibroglandular densities bilaterally. No suspicious focal mass, asymmetry, calcifications, or architectural distortion. No evidence of malignancy. Coarse calcification LEFT breast. Vascular ca lcifications. MM/MM scr tomosynthesis [id number] IMPRESSION: DENSITY: There are scattered areas of fibroglandular density. BI-RADS: 2 - Benign. FOLLOW UP: 1 Year Follow-up Recommend return to annual screening mammography.
--- NOTE | 2024-01-09 13:30 | XR_ITS ---
WS: [id number] SCREENING DEXA SCAN MDSave CLINICAL INFORMATION: Z78.0 - Asymptomatic menopausal state COMPARISON: None. FINDINGS: The LEFT forearm bone mineral density measures 0.265. This corresponds to a T score score of -4.4 and Z score of -1.6. Left femoral neck bone mineral density measures 0.622 g/cm2. This corresponds to a T score of -3.1 an d Z score of -1.2. Right femoral neck bone mineral density measures 0.577 g/cm2. This corresponds to a T score -3.4of an d Z score of -1.6. Mean femoral neck bone mineral density measures 0.599 g/cm2. This corresponds to a T score of -3.2 an d Z score of -1.4. XR/XR DEXA axial skeleton* [id number] IMPRESSION: Osteoporosis LEFT forearm. Osteoporosis femoral necks. Patient's FRAX calculated 10 year probability for major osteoporotic fracture i s 36.1% and osteoporotic hip fracture is 14.9%.
== END 2024-01-09 12:41 | disposition home or self-care (01) ==
LOC: RAD 12:41
PROVIDERS: PCP Nurse Practitioner Family; Visit Provider Nurse Practitioner Family
DX: Z12.31 Encounter for screening mammogram for malignant neoplasm of breast (principal); Z13.820 Encounter for screening for osteoporosis; R92.323 Mammographic fibroglandular density, bilateral breasts; R92.1 Mammographic calcification found on diagnostic imaging of breast; M81.0 Age-related osteoporosis without current pathological fracture; Z78.0 Asymptomatic menopausal state
CPT/HCPCS: 77063; 77067; 77080

== ENCOUNTER → 2024-01-29 14:11 | Outpatient (BNVA) | payer MEDICARE, OTHER, SELFPAY | PROVIDERS: PCP Nurse Practitioner Family; Visit Provider Dermatology | DX: L82.1 Other seborrheic keratosis (principal); L81.4 Other melanin hyperpigmentation; L60.9 Nail disorder, unspecified; D18.01 Hemangioma of skin and subcutaneous tissue; L57.0 Actinic keratosis; D48.5 Neoplasm of uncertain behavior of skin | CPT/HCPCS: 11102; 99203 ==

== ENCOUNTER 2024-04-08 17:14 | Emergency (ER) | payer MEDICARE, OTHER, SELFPAY ==
[2024-04-08 17:16] VITALS: BP 172/72; PULSE 88; RESP 16; TEMP 36.7; O2SAT 94; BMI 28.3
--- NOTE | 2024-04-08 17:18 | XRR_ITS ---
PROCEDURE INFORMATION: Exam: XR Right Humerus Exam date and time: 04/08/2024 5:25 PM Age: 78 years old Clinical indication: Injury or trauma; Fall; Blunt trauma (contusions or hematomas); Arm, upper; Right TECHNIQUE: Imaging protocol: Radiologic exam of the right humerus. Views: 2 or more views. COMPARISON: No relevant prior studies available. FINDINGS: Bones/joints: There is diffuse osteopenia. There is a mildly comminuted fracture through the humeral head and surgical neck with mild impaction at the fracture site. There does not appear to be significant displacement based on the two views submitted. The humeral head remains normally located within the glenoid fossa. There are degenerative changes involving the acromioclavicular joint. Soft tissues: There is soft tissue edema surrounding the shoulder and proximal humerus. XR/[place] [id number] IMPRESSION: Mildly comminuted humeral head and surgical neck fracture as described.
--- NOTE | 2024-04-08 17:41 | W.ED.EXTPRO ---
HPI - Extremity Problem General: Chief complaint: Extremity Injury, Upper Stated complaint: Fall, RT Arm Pain Time Seen by Provider: 04/08/24 17:18 History of Present Illness: 78-year-old female presents emergency room after a fall at home she fell landed on her arm with her elbow but she complaining of pain in her proximal right upper arm did not strike her head there is no loss conscious denies any other injuries. She is not on any blood thinners. Related Data Previous Rx's ?Medication ?Instructions ?Recorded metoprolol tartrate 25 mg tablet 12.5 mg (1/2 x 25 mg) PO BID #90 05/03/23 tabs escitalopram oxalate 10 mg tablet 10 mg PO DAILY #30 tabs 10/02/23 (Lexapro) ropinirole 0.5 mg tablet See Rx Instructions PO .nightly 12/25/23 #90 tabs denosumab 60 mg/mL subcutaneous 60 mg SUBCUT .COMPLEX #1 mL 01/29/24 syringe (Prolia) hydrocodone 5 mg-acetaminophen 325 1 tab PO Q6H PRN pain #30 tabs 04/08/24 mg tablet Allergies Allergy/AdvReac Type Severity Reaction Status Date / Time adhesive tape Allergy irritating Verified 03/21/24 17:06 skin amoxicillin (From Augmentin) Allergy GI upset Verified 03/21/24 17:06 clavulanic acid (From Allergy GI upset Verified 03/21/24 17:06 Augmentin) codeine Allergy Nausea Verified 03/21/24 17:06 hydrocodone Allergy ADR-Nausea Verified 03/21/24 17:06 Sulfa (Sulfonamide Allergy Rash Verified 03/21/24 17:06 Antibiotics) [facility] ED PFSH: Medical History (Updated 04/08/24 @ 17:37 by Des Malloy DO) Hyperlipemia Enrolled in chronic care management Essential hypertension TOR (acute kidney injury) Myopericarditis Troponin level elevated Hypomagnesemia Non-ST elevation HI (NSTEMI) Diverticulosis large intestine w/o perforation or abscess w/bleeding History of colon polyps Kidney stone Surgical History History of colonoscopy History of hemorrhoidectomy Hx laparoscopic cholecystectomy Hx of hysterectomy History of kidney removal Previous back surgery Family History (Updated 12/26/23 @ 21:38 by KENYON Villeda) Father , AT AGE 66 Heart attack Mother , AT AGE 93 Stroke Brother Heart attack age 81 Brother COPD (chronic obstructive pulmonary disease) age 83 Brother Cancer colo-rectal cancer age 92 Social History Smoking and tobacco/nicotine status: never used tobacco/nicotine Second hand smoke exposure: No Alcohol intake: never Substance/Drug Use: never Caregiver/support person: Yes Lives independently: Yes Household members: spouse Marital status: service: No Current occupational status: retired Current gender identity: Female Special magdalena needs: No Physical Exam Const: COMMON NORMALS: no acute distress GENERAL APPEARANCE: cooperative and comfortable ORIENTATION/CONSCIOUSNESS: Yes awake, Yes oriented to person, Yes oriented to place and Yes oriented to time HENMT: COMMON NORMALS: normocephalic, atraumatic and hearing grossly normal bilaterally HEAD & SCALP: normocephalic and atraumatic Resp: COMMON NORMALS: normal respiratory effort, No retractions, No use of accessory muscles and clear to auscultation bilaterally AUSCULTATION: clear to auscultation bilaterally Cardio: COMMON NORMALS: regular rate, regular rhythm and No murmurs present (Cardio) RATE: regular rate RHYTHM: regular rhythm GI: COMMON NORMALS: Soft to palpation and No hepatosplenomegaly present AUSCULTATION: Yes normoactive bowel sounds PALPATION: Yes Soft to palpation, No Tenderness to palpation present (GI), No Guarding due to palpation present (GI) and Yes No hepatosplenomegaly present Extremity: OTHER: Deformity and swelling of the right proximal humerus consistent with proximal humerus fracture Neuro: SENSORIUM/ORIENTATION: Yes oriented to person, Yes oriented to place and Yes oriented to time Skin: COMMON NORMALS: no rashes or lesions noted GENERAL SKIN EXAM: no rashes or lesions noted Course Vital Signs: Vital signs: Vital Signs Temperature 98.0 F 04/08/24 17:16 Pulse Rate 88 04/08/24 17:16 Respiratory Rate 16 04/08/24 17:16 Blood Pressure 172/72 04/08/24 17:16 Pulse Oximetry 94 04/08/24 17:16 Oxygen Delivery Me thod Room Air 04/08/24 17:16 MDM - Extremity (Nontraumatic) Medical Decision Making Right proximal humerus fracture placed in a sling hydrocodone for pain follow-up with orthopedics XR interpretation done by ED provider, pending radiology final review ED provider radiology interpretation(s): X-ray of the right humerus impacted humeral head fracture Discharge Plan Discharge Patient Disposition: Home Clinical Impression: Closed fracture of proximal end of right humerus Condition: Stable Prescriptions: New hydrocodone-acetaminophen 5-325 mg tablet 1 tab PO Q6H PRN (Reason: pain) Qty: 30 0RF No Action ropinirole 0.5 mg tablet See Rx Instructions PO .nightly Qty: 90 1RF Rx Instructions: 0.5mg orally NIGHTLY; escitalopram oxalate [Lexapro] 10 mg tablet 10 mg PO DAILY Qty: 30 5RF Prolia 60 mg/mL syringe 60 mg SUBCUT .COMPLEX Qty: 1 1RF Rx Instructions: 60 mg subcutaneously EVERY 6 MONTHS; metoprolol tartrate 25 mg tablet 12.5 mg PO BID Qty: 90 3RF Discharge Orders: Discharge ED (Routine); Ordered 04/08/24 Ordered By: Des Malloy Referrals: Ally Chris FNP [Primary Care Provider] - Discharge Diet: Usual diet Discharge Activity: Limit activity as instructed Patient Instructions: Arm Fracture in Adults (ED), Opioid Safety, Pain Management Activity Restrictions/Additional Instructions: Thank you for choosing [facility] for your healthcare needs today. It is very important that you follow up as instructed or that you return to the Emergency Department should you have concerns or if your condition changes or worsens in any way. You were seen in the emergency room after a fall. She sustained a right proximal humerus fracture. These are not treated surgically and are allowed to heal in place. You should wear an arm sling use pain medications given. Do not use the right arm outsole caser will make arrangements for you to follow-up with orthopedics Print Language: Uruguayan Coding Level of Care Code ED Comfort Advisor for Yaz Pardo
[2024-04-08] MEDS: ondansetron 2 mg/ML SDV 2 mL 4 MG IVP (17:46)
[2024-04-08] MEDS: HYDROMORPHONE HCL 0.5 MG/0.5 ML INJ IVP (17:47)
[2024-04-08 17:48] VITALS: BP 172/68; PULSE 79; O2SAT 94
--- NOTE | 2024-04-09 07:50 | DCPLANNER ---
message sent to Ortho- Right proximal humerus fracture placed in a sling hydrocodone for pain follow-up with orthopedics XR interpretation done by ED provider, pending radiology final review ED provider radiology interpretation(s): X-ray of the right humerus impacted humeral head fracture
== END 2024-04-08 19:24 | disposition home or self-care (01) ==
PROVIDERS: Emergency Provider Family Medicine; PCP Nurse Practitioner Family
DX: S42.201A Unspecified fracture of upper end of right humerus, initial encounter for closed fracture (principal); E78.5 Hyperlipidemia, unspecified; I10 Essential (primary) hypertension; W19.XXXA Unspecified fall, initial encounter
CPT/HCPCS: 73060; 96374; 96375; 99284; J1171; J2405

== ENCOUNTER → 2024-04-10 12:57 | Outpatient (BNVA) | payer MEDICARE, OTHER, SELFPAY | PROVIDERS: PCP Nurse Practitioner Family; Visit Provider Orthopaedic Surgery | DX: S42.201A Unspecified fracture of upper end of right humerus, initial encounter for closed fracture (principal); X58.XXXA Exposure to other specified factors, initial encounter | CPT/HCPCS: 73060; 99203 ==

== ENCOUNTER → 2024-05-01 10:46 | Outpatient (BNVA) | payer MEDICARE, OTHER, SELFPAY | PROVIDERS: PCP Nurse Practitioner Family; Visit Provider Orthopaedic Surgery | DX: S42.291D Other displaced fracture of upper end of right humerus, subsequent encounter for fracture with routine healing (principal); X58.XXXD Exposure to other specified factors, subsequent encounter | CPT/HCPCS: 73060; 99213 ==

== ENCOUNTER → 2024-05-29 08:55 | Outpatient (BNVA) | payer MEDICARE, OTHER, SELFPAY | PROVIDERS: PCP Nurse Practitioner Family; Visit Provider Orthopaedic Surgery | DX: S42.291D Other displaced fracture of upper end of right humerus, subsequent encounter for fracture with routine healing (principal); X58.XXXD Exposure to other specified factors, subsequent encounter | CPT/HCPCS: 73030; 99213 ==

== ENCOUNTER → 2024-07-03 10:15 | Outpatient (BNVA) | payer MEDICARE, OTHER, SELFPAY | PROVIDERS: PCP Nurse Practitioner Family; Visit Provider Orthopaedic Surgery | DX: S42.291D Other displaced fracture of upper end of right humerus, subsequent encounter for fracture with routine healing (principal); X58.XXXD Exposure to other specified factors, subsequent encounter | CPT/HCPCS: 73060; 99213 ==

== ENCOUNTER → 2024-07-29 12:46 | Outpatient (BNVA) | payer MEDICARE, OTHER, SELFPAY | PROVIDERS: PCP Nurse Practitioner Family; Visit Provider Internal Medicine | DX: I12.9 Hypertensive chronic kidney disease with stage 1 through stage 4 chronic kidney disease, or unspecified chronic kidney disease (principal); N18.9 Chronic kidney disease, unspecified; I31.9 Disease of pericardium, unspecified; I25.2 Old myocardial infarction | CPT/HCPCS: 99214 ==

== ENCOUNTER → 2024-09-18 12:42 | Outpatient (BNVA) | payer MEDICARE, OTHER, SELFPAY | PROVIDERS: PCP Nurse Practitioner Family; Visit Provider Nurse Practitioner Family | DX: R19.8 Other specified symptoms and signs involving the digestive system and abdomen (principal); R19.7 Diarrhea, unspecified | CPT/HCPCS: 80053; 84443; 85025 ==

== ENCOUNTER 2024-09-22 12:31 | Outpatient (CLI) | payer MEDICARE, OTHER, SELFPAY ==
--- NOTE | 2024-09-22 13:45 | CT_ITS ---
WS: [id number] CT ABDOMEN AND PELVIS WITH CONTRAST HISTORY: R19.7 - Diarrhea, unspecified TECHNIQUE: Imaging performed of the abdomen and pelvis with IV contrast. Single phase imaging of the abdomen. Coronal and sagittal reformats are submitted. All CT scans at [facility] use at least one of these dose optimization techniques: automated exposure control; mA and/or kV adjustment per patient size (includes targeted exams where dose is matched to clinical indication); or iterative reconstruction. IV CONTRAST: Omnipaque 350; 100 mL IV. Oral contrast: Yes. DLP: 503.51 mGy.cm COMPARISON: 01/03/2021 Lower thorax: Mild dependent changes at the lung bases. No mass. Heart is normal size. Small hiatal hernia. Liver/biliary system: Normal size with no intrahepatic dilatation. Gallbladder: Status post cholecystectomy. Pancreas: Normal size pancreas and pancreatic duct. No adjacent inflammation. Spleen: Normal size spleen. No mass or infarct. Adrenal glands: Normal. Right kidney: Prior nephrectomy. Left kidney: Normal size LEFT kidney. Lobulated cyst mid anterior kidney 2.3 x 3.1 cm. Small extrarenal pelvis. Nonobstructing 3 mm calcification lower pole. Aorta: Mild atherosclerosis with no aneurysm. Calcification at the origins SMA celiac axis. 50% stenosis proximal SMA. Small amount of thrombus in the proximal SMA. Lymphadenopathy: None. Free fluid: None. GI tract: Normally distended stomach. No small bowel obstruction. No ischemic changes. Mild sigmoid diverticulosis. Abdominal wall: Unremarkable abdominal wall. No hernia. Pelvis: No free fluid or adenopathy within the pelvis. Bones: Osteopenia. Posterior lumbar fusion L4-5. CT/CT abdomen pelvis w con* [id number] IMPRESSION: 1. High-grade stenosis involving the proximal SMA. Stenosis due to combination of calcified plaque and noncalcified thrombus. This is a short segment stenosi s. 2. No ischemic changes noted in the GI tract. 3. Prior RIGHT nephrectomy. 4. Mild sigmoid diverticulosis. Notified KENYON Villeda at 09/22/2024 3:59 PM.
[2024-09-22] MEDS: iohexol 350 mg/mL 500 mL Btl (per mL) IV (13:50)
[2024-09-22] MEDS: iohexol 350 mg/mL 500 mL Btl (per mL) PO (13:50)
== END 2024-09-22 12:32 | disposition home or self-care (01) ==
LOC: RAD 12:34
PROVIDERS: PCP Nurse Practitioner Family; Visit Provider Nurse Practitioner Family
DX: R19.7 Diarrhea, unspecified (principal); R10.9 Unspecified abdominal pain; K44.9 Diaphragmatic hernia without obstruction or gangrene; Z90.49 Acquired absence of other specified parts of digestive tract; Z90.5 Acquired absence of kidney; K57.30 Diverticulosis of large intestine without perforation or abscess without bleeding; M85.88 Other specified disorders of bone density and structure, other site; I70.1 Atherosclerosis of renal artery
CPT/HCPCS: 74177; 83630; 83993; 87045; 87177; 87209; 87427; 87449; 87493

== ENCOUNTER → 2024-12-15 10:36 | Outpatient (BNVA) | payer MEDICARE, OTHER, SELFPAY | PROVIDERS: PCP Nurse Practitioner Family; Visit Provider Nurse Practitioner Family | DX: M81.0 Age-related osteoporosis without current pathological fracture (principal); I10 Essential (primary) hypertension | CPT/HCPCS: 80048; 82306 ==